=== PATIENT | male | born 1960 | race Caucasian/White ===

== ENCOUNTER 2016-12-27 05:33 | Emergency (ER) | payer SELFPAY ==
[2016-12-27 05:41] VITALS: BP 167/74; PULSE 61; RESP 18; TEMP 98.5
--- NOTE | 2016-12-27 05:57 | ED ---
General Adult HPI - General Chief complaint: Extremity Problem,Nontraumatic Stated complaint: Splinter in finger Time Seen by Provider: 12/27/16 05:34 Source: patient, RN notes reviewed Mode of arrival: ambulatory Limitations: no limitations - History of Present Illness Initial comments: 56-year-old male presents for evaluation of pain and swelling of his right third finger. Patient states on he got a splinter in the base of the third digit. He was sanding and hope table. Slit was made aware. He states that he immediately pulled the sliver out, however over the past 3 days he has had some swelling and erythema of this digit. This progressed until this morning, when he bent his finger he noticed a small amount of pus came from the site where the splinter had been. Patient is otherwise healthy. Patient is able to move the finger freely. No fever or chills - Related Data Previous Rx's Medication Instructions Recorded Cephalexin [Keflex] 500 mg PO Q8HR #30 cap 12/27/16 Sulfamethox-Tmp 800-160Mg [Bactrim 1 tab PO Q12HR #20 tab 12/27/16 DS 800-160 mg] Allergies Allergy/AdvReac Type Severity Reaction Status Date / Time No Known Allergies Allergy Verified 12/27/16 05:41 Review of Systems ROS Statement: Those systems with pertinent positive or pertinent negative responses have been documented in the HPI. ROS Other: All systems not noted in ROS Statement are negative. Past Medical History Past Medical History: Hypertension History of Any Multi-Drug Resistant Organisms: None Reported Additional Past Surgical History / Comment(s): stents placed. Past Psychological History: No Psychological Hx Reported Smoking Status: Current every day smoker Past Alcohol Use History: Daily Past Drug Use History: None Reported General Exam Limitations: no limitations General appearance: alert, in no apparent distress Head exam: Present: atraumatic, normocephalic Eye exam: Present: normal appearance, PERRL Neck exam: Present: normal inspection Respiratory exam: Present: normal lung sounds bilaterally. Absent: respiratory distress Cardiovascular Exam: Present: regular rate, normal rhythm Extremities exam: Present: other (Patient has erythema, warmth, and swelling of the proximal phalanx third digit right hand. There is a laceration on the palmar surface. This is draining a minimal amount of pus. Patient can fully move this digit both flexion and extension. No signs of erythema on the palmar surface.) Course Vital Signs 12/27/16 05:36 Temperature 98.5 F Pulse Rate 61 Respiratory 18 Rate Blood Pressure 167/74 O2 Sat by Pulse 99 Oximetry Medical Decision Making - Medical Decision Making 56-year-old male presenting with concern for retained splinter, third finger right hand. There is cellulitis and drainage over the site of injury. No signs of tenosynovitis, no tracking erythema into the pole. This is cleansed the emergency department, no obvious foreign body is visualized. The injury is on the flexor surface of the finger. It is freely draining pus. Patient is encouraged to continue warm soaks. He is given hand surgery follow-up for possible retained foreign body. He will be started on antibiotics. Return to emergency department with worsening symptoms. Disposition Clinical Impression: Splinter in skin, Cellulitis and abscess of hand Disposition: HOME SELF-CARE Condition: Good Instructions: Soft Tissue Foreign Body (ED), Cellulitis (ED) Additional Instructions: Return to the emergency department with worsening pain, swelling, or erythema moving up the hand. Prescriptions: Cephalexin [Keflex] 500 mg PO Q8HR #30 cap Sulfamethox-Tmp 800-160Mg [Bactrim DS 800-160 mg] 1 tab PO Q12HR #20 tab Referrals: None,Stated [Primary Care Provider] - 1-2 days Ad Saavedra DO [Doctor of Osteopathic Medicine] - 1-2 days Time of Disposition: 05:55
== END 2016-12-27 06:07 | disposition home or self-care (01) ==
LOC: EC 05:33
DX: S60.452A Superficial foreign body of right middle finger, initial encounter (principal); S61.212A Laceration without foreign body of right middle finger without damage to nail, initial encounter; L03.011 Cellulitis of right finger; F17.200 Nicotine dependence, unspecified, uncomplicated; W45.8XXA Other foreign body or object entering through skin, initial encounter
CPT/HCPCS: 99283

== ENCOUNTER → 2017-11-06 | Outpatient (CLI) | payer OTHER ==
[2017-11-06 12:30] LABS: ALT 53 U/L (21-72); AST 25 U/L (17-59); Cholesterol 160 mg/dL (<200); HDL Cholesterol 37 mg/dL (40-60); LDL Cholesterol,Calculated 74 mg/dL (0-99); Triglycerides 246 mg/dL (<150)
== END | disposition home or self-care (01) ==
LOC: LABWHC1 10:54
PROVIDERS: ATTEND Internal Medicine Cardiovascular Disease
DX: E78.2 Mixed hyperlipidemia (principal)
CPT/HCPCS: 36415; 80061; 84450; 84460

== ENCOUNTER 2024-07-03 16:18 | Observation (INO) | payer MEDICARE ==
[2024-07-03] MEDS ORDERED: MORPHINE SULFATE 4 MG/ML SYRINGE IV PRN (16:49)
--- NOTE | 2024-07-03 16:49 | ED ---
Abdominal Pain HPI - General Chief Complaint: Abdominal Pain Stated Complaint: abd pain Time Seen by Provider: 07/03/24 16:26 Source: patient, RN notes reviewed, old records reviewed Mode of arrival: ambulatory Limitations: no limitations - History of Present Illness Initial Comments: This is a 64-year-old male to the ER for evaluation abdominal pain this is recurrent abdominal pain from similar symptoms 2 weeks ago, patient had thorough and extensive evaluation including procedures CT scans repeat CT scan and ultrasound which she was unsure of findings. Patient has no recent travels or sick contacts no fevers positive nausea no vomiting no diarrhea abdominal pain that started today after eating worse after lunch started after breakfast. Symptoms are persistent MD Complaint: abdominal pain -: hour(s) Location: periumbilical, suprapubic Radiation: bilateral flank Migration to: periumbilical, suprapubic Severity: severe Severity scale (1-10): 10 Quality: cramping, stabbing Consistency: intermittent Improves With: nothing Worsens With: eating Associated Symptoms: nausea Treatments Prior to Arrival: other - Related Data Home Medications Medication Instructions Recorded Confirmed Atorvastatin [Lipitor] 40 mg PO DAILY 06/12/24 06/12/24 Fenofibrate Nanocrystallized 145 mg PO DAILY 06/12/24 06/12/24 [Fenofibrate] amLODIPine [Norvasc] 10 mg PO DAILY 06/12/24 06/12/24 cilostazoL [Pletal] 100 mg PO AC-BID 06/12/24 06/12/24 hydroCHLOROthiazide [Hydrodiuril] 25 mg PO DAILY 06/12/24 06/12/24 lisinopriL [Zestril] 40 mg PO DAILY 06/12/24 06/12/24 Previous Rx's Medication Instructions Recorded Apixaban [Eliquis] 5 mg PO BID #90 tab 06/14/24 Allergies Allergy/AdvReac Type Severity Reaction Status Date / Time No Known Allergies Allergy Verified 07/03/24 16:23 Review of Systems ROS Statement: Those systems with pertinent positive or pertinent negative responses have been documented in the HPI. ROS Other: All systems not noted in ROS Statement are negative. Past Medical History Past Medical History: Coronary Artery Disease (CAD), Hypertension, Sleep Apnea/CPAP/BIPAP Additional Past Medical History / Comment(s): PAD History of Any Multi-Drug Resistant Organisms: None Reported Past Surgical History: Heart Catheterization With Stent Additional Past Surgical History / Comment(s): bypass left leg Past Anesthesia/Blood Transfusion Reactions: No Reported Reaction Past Psychological History: No Psychological Hx Reported Smoking Status: Current every day smoker Past Alcohol Use History: Daily Past Drug Use History: None Reported General Exam Limitations: no limitations General appearance: alert, in no apparent distress Head exam: Present: atraumatic, normocephalic, normal inspection Eye exam: Present: normal appearance, PERRL, EOMI. Absent: scleral icterus, conjunctival injection, periorbital swelling ENT exam: Present: normal exam, mucous membranes moist Neck exam: Present: normal inspection. Absent: tenderness, meningismus, lymphadenopathy Respiratory exam: Present: normal lung sounds bilaterally. Absent: respiratory distress, wheezes, rales, rhonchi, stridor Cardiovascular Exam: Present: regular rate, normal rhythm, normal heart sounds. Absent: systolic murmur, diastolic murmur, rubs, gallop, clicks GI/Abdominal exam: Present: soft, normal bowel sounds. Absent: distended, tenderness, guarding, rebound, rigid Extremities exam: Present: normal inspection, full ROM, normal capillary refill. Absent: tenderness, pedal edema, joint swelling, calf tenderness Back exam: Present: normal inspection Neurological exam: Present: alert, oriented X3, CN II-XII intact Psychiatric exam: Present: normal affect, normal mood Skin exam: Present: warm, dry, intact, normal color. Absent: rash Course Vital Signs 07/03/24 16:33 Temperature 98.4 F Pulse Rate 86 Respiratory 16 Rate Blood Pressure 138/78 O2 Sat by Pulse 97 Oximetry - Reevaluation(s) Reevaluation #1: 07/03/24 17:10 Medical records reviewed Reevaluation #4: Was pt. sent in by a medical professional or institution (, PA, GAS CUTTING MACHINE OPERATOR, urgent care, hospital, or care home...) When possible be specific @ -no Did you speak to anyone other than the patient for history (EMS, parent, family, police, friend...)? What history was obtained from this source @ -no Did you review nursing and triage notes (agree or disagree)? Why? @ -agree Are old charts reviewed (outside hosp., previous admission, EMS record, old EKG, old radiological studies, urgent care reports/EKG's, care home records)? Report findings @ -yes Differential Diagnosis (chest pain, altered mental status, abdominal pain women, abdominal pain men, vaginal bleeding, weakness, fever, dyspnea, syncope, headache, dizziness, GI bleed, back pain, seizure, CVA, palpatations, mental health, musculoskeletal)? @ -prior EKG interpreted by me (3pts min.). @ -yes X-rays interpreted by me (1pt min.). @ -yes negative for acute disease CT interpreted by me (1pt min.). @ -no U/S interpreted by me (1pt. min.). @ -no What testing was considered but not performed or refused? (CT, X-rays, U/S, labs)? Why? @ -none What meds were considered but not given or refused? Why? @ -none Did you discuss the management of the patient with other professionals (professionals i.e. , PA, GAS CUTTING MACHINE OPERATOR, lab, RT, psych nurse, child protective services social worker, intellectual property lawyer, teacher, hospital chief executive officer, embedded case manager)? Give summary @ -no Was smoking cessation discussed for >3mins.? @ -no Was critical care preformed (if so, how long)? @ -no Were there social determinants of health that impacted care today? How? (Homelessness, low income, unemployed, alcoholism, drug addiction, transportation, low edu. Level, literacy, decrease access to med. care, [facility], rehab)? @ -none Was there de-escalation of care discussed even if they declined (Discuss DNR or withdrawal of care, Hospice)? DNR status @ -no What co-morbidities impacted this encounter? (DM, HTN, Smoking, COPD, CAD, Cancer, CVA, ARF, Chemo, Hep., AIDS, mental health diagnosis, sleep apnea, morbid obesity)? @ -none Was patient admitted / discharged? Hospital course, mention meds given and route, prescriptions, significant lab abnormalities, going to OR and other pertinent info. @ - Undiagnosed new problem with uncertain prognosis? @ -no Drug Therapy requiring intensive monitoring for toxicity (Heparin, Nitro, Insulin, Cardizem)? @ -no Were any procedures done? @ -no Diagnosis/symptom? @ - Acute, or Chronic, or Acute on Chronic? @ -Acute Uncomplicated (without systemic symptoms) or Complicated (systemic symptoms)? @ -Complicated Side effects of treatment? @ -no Exacerbation, Progression, or Severe Exacerbation? @ -exacerbation Poses a threat to life or bodily function? How? (Chest pain, USA, OR, pneumonia, PE, COPD, DKA, ARF, appy, cholecystitis, CVA, Diverticulitis, Homicidal, Suicidal, threat to staff... and all critical care pts) @ -yes Reevaluation #5: Differential Abdominal Pain Men: Appendicitis, cholecystitis, diverticulosis, ischemic bowel, pancreatitis, hepatitis, UTI, gastroenteritis, AAA, incarcerated hernia, bowel obstruction, constipation, inflammatory bowel, hepatitis, peptic ulcer disease, splenic infarction, perforated viscus, testicular torsion, this is not meant to be an all-inclusive list Medical Decision Making - Lab Data Result diagrams: 07/03/24 16:57 07/03/24 16:57 Lab Results 07/03/24 07/03/24 07/03/24 Range/Units 16:57 16:57 16:57 WBC 12.41 H (4.50-10.00) 10*3/uL RBC 5.29 (4.40-5.60) 10*6/uL Hgb 16.3 (13.0-17.0) g/dL Hct 46.3 (39.6-50.0) % MCV 87.5 (80.0-97.0) fL MCH 30.8 (27.0-32.0) pg MCHC 35.2 (32.0-37.0) g/dL Plt Count 336 (140-440) 10*3/uL MPV 10.3 (9.5-12.2) fL Immature Gran % (Auto) 0.3 % Neutrophils % 73.0 % Lymphocytes % 17.7 % Monocytes % 6.6 % Eosinophils % 1.4 % Basophils % 1.0 % Immature Gran # 0.04 (0.00-0.04) 10*3/uL Neutrophils # 9.05 H (1.80-7.70) 10*3/uL Lymphocytes # 2.20 (0.90-5.00) 10*3/uL Monocytes # 0.82 (0.20-1.00) 10*3/uL Eosinophils # 0.17 (0.04-0.35) 10*3/uL Basophils # 0.13 H (0.00-0.10) 10*3/uL PT 11.7 (10.0-12.5) sec INR 1.1 (<1.2) APTT 24.7 (22.0-30.0) sec Sodium 138 (137-145) mmol/L Potassium 3.5 (3.5-5.1) mmol/L Chloride 105 (98-107) mmol/L Carbon Dioxide 21 L (22-30) mmol/L Anion Gap 12 mmol/L BUN 19 (9-20) mg/dL Creatinine 0.85 (0.66-1.25) mg/dL Est GFR (CKD-EPI)AfAm >90 (>60 ml/min/1.73 sqM) Est GFR (CKD-EPI)NonAf >90 (>60 ml/min/1.73 sqM) Glucose 167 H (74-99) mg/dL Plasma Lactic Acid Liam (0.7-2.0) mmol/L Calcium 10.4 H (8.4-10.2) mg/dL Phosphorus 3.2 (2.5-4.5) mg/dL Magnesium 1.6 (1.6-2.3) mg/dL Total Bilirubin 0.7 (0.2-1.3) mg/dL AST 17 (17-59) U/L ALT 17 (4-49) U/L Alkaline Phosphatase 50 (38-126) U/L Troponin I (0.000-0.034) ng/mL Total Protein 6.9 (6.3-8.2) g/dL Albumin 4.5 (3.5-5.0) g/dL Amylase 41 (30-110) U/L Lipase 36 (23-300) U/L Serum Alcohol <10 mg/dL 07/03/24 07/03/24 Range/Units 16:57 16:57 WBC (4.50-10.00) 10*3/uL RBC (4.40-5.60) 10*6/uL Hgb (13.0-17.0) g/dL Hct (39.6-50.0) % MCV (80.0-97.0) fL MCH (27.0-32.0) pg MCHC (32.0-37.0) g/dL Plt Count (140-440) 10*3/uL MPV (9.5-12.2) fL Immature Gran % (Auto) % Neutrophils % % Lymphocytes % % Monocytes % % Eosinophils % % Basophils % % Immature Gran # (0.00-0.04) 10*3/uL Neutrophils # (1.80-7.70) 10*3/uL Lymphocytes # (0.90-5.00) 10*3/uL Monocytes # (0.20-1.00) 10*3/uL Eosinophils # (0.04-0.35) 10*3/uL Basophils # (0.00-0.10) 10*3/uL PT (10.0-12.5) sec INR (<1.2) APTT (22.0-30.0) sec Sodium (137-145) mmol/L Potassium (3.5-5.1) mmol/L Chloride (98-107) mmol/L Carbon Dioxide (22-30) mmol/L Anion Gap mmol/L BUN (9-20) mg/dL Creatinine (0.66-1.25) mg/dL Est GFR (CKD-EPI)AfAm (>60 ml/min/1.73 sqM) Est GFR (CKD-EPI)NonAf (>60 ml/min/1.73 sqM) Glucose (74-99) mg/dL Plasma Lactic Acid Liam 1.7 (0.7-2.0) mmol/L Calcium (8.4-10.2) mg/dL Phosphorus (2.5-4.5) mg/dL Magnesium (1.6-2.3) mg/dL Total Bilirubin (0.2-1.3) mg/dL AST (17-59) U/L ALT (4-49) U/L Alkaline Phosphatase (38-126) U/L Troponin I <0.012 (0.000-0.034) ng/mL Total Protein (6.3-8.2) g/dL Albumin (3.5-5.0) g/dL Amylase (30-110) U/L Lipase (23-300) U/L Serum Alcohol mg/dL Disposition Clinical Impression: Abdominal pain, Nausea and vomiting, Leukocytosis, Abdominal colic Disposition: ADMITTED IP TO THIS HOSP Condition: Fair Is patient prescribed a controlled substance at d/c from ED?: No Referrals: Scott Hernandez MD [Primary Care Provider] - 1-2 days Time of Disposition: :00
[2024-07-03] MEDS: SODIUM CHLORIDE 0.9% 1,000 ML IV ONE (17:02)
[2024-07-03] MEDS: ONDANSETRON 4 MG/2 ML VIAL IVP STA (17:02)
[2024-07-03] MEDS: PANTOPRAZOLE 40 MG/10 ML VIAL IVP STA (17:02)
[2024-07-03] MEDS: MORPHINE SULFATE 4 MG/ML SYRINGE IVP STA (17:02)
[2024-07-03 17:04] LABS: Basophils # (A) 0.13 10*3/uL (0.00-0.10); Eosinophils # (A) 0.17 10*3/uL (0.04-0.35); Eosinophils % (A) 1.4 %; HCT 46.3 % (39.6-50.0); HGB 16.3 g/dL (13.0-17.0); Lymphocytes % (A) 17.7 %; MCH 30.8 pg (27.0-32.0); MCHC 35.2 g/dL (32.0-37.0); MCV 87.5 fL (80.0-97.0); Mean Platelet Volume 10.3 fL (9.5-12.2); Monocytes # (A) 0.82 10*3/uL (0.20-1.00); Monocytes % (A) 6.6 %; Neutrophils # (A) 9.05 10*3/uL (1.80-7.70); Platelet Count 336 10*3/uL (140-440); RBC 5.29 10*6/uL (4.40-5.60); RDW 12.9 % (11.5-14.5); WBC 12.41 10*3/uL (4.50-10.00)
[2024-07-03 17:15] LABS: INR 1.1 (<1.2); Partial Thromboplastin Time 24.7 sec (22.0-30.0); Prothrombin Time 11.7 sec (10.0-12.5)
[2024-07-03 17:31] LABS: ALT 17 U/L (4-49); AST 17 U/L (17-59); African American GFR (CKD) >90 (>60 ml/min/1.73 sqM); Albumin 4.5 g/dL (3.5-5.0); Alcohol <10 mg/dL; Alkaline Phosphatase 50 U/L (38-126); Amylase 41 U/L (30-110); Anion Gap 12 mmol/L; Blood Urea Nitrogen 19 mg/dL (9-20); Calcium 10.4 mg/dL (8.4-10.2); Carbon Dioxide 21 mmol/L (22-30); Chloride 105 mmol/L (98-107); Glucose 167 mg/dL (74-99); Lipase 36 U/L (23-300); Magnesium 1.6 mg/dL (1.6-2.3); Non-African American GFR(CKD) >90 (>60 ml/min/1.73 sqM); Phosphorus 3.2 mg/dL (2.5-4.5); Potassium 3.5 mmol/L (3.5-5.1); Sodium 138 mmol/L (137-145); Total Bilirubin 0.7 mg/dL (0.2-1.3); Total Protein 6.9 g/dL (6.3-8.2)
--- NOTE | 2024-07-03 18:57 | CT ---
EXAMINATION TYPE: CT angio abdomen pelvis DATE OF EXAM: 07/03/2024 6:27 PM COMPARISON: Prior CT angiogram study 06/14/2024. CLINICAL INDICATION: Male, 64 years old with history of pain,AAA; PHH, SHARP PAIN IN LOWER ABDOMEN, N AUSEA TECHNIQUE: Multiple thin slice sub-millimeter images were obtained after administration of contrast. 3-D reconstructed images and maximum intensity projection images were obtained. CT angio abdomen pel vis CT Contrast: Contrast used:100 ml mL of Isovue 370 with IV Contrast, Oral contrast used: without Oral Contrast None CT DLP: 1488.9 mGycm, Automated exposure control for dose reduction was used. FINDINGS: Partially visualized lower lungs demonstrates no acute pathology. Liver unremarkable. Gallbladder unr emarkable. Pancreas unremarkable. No pancreatic duct dilatation. No abnormal biliary duct dilatation. Spleen is normal in size and morphology. No suspicious adrenal gland nodule. Kidneys enhance symmetr ically bilaterally. No hydronephrosis or ureter. Colonic diverticulosis without acute diverticulitis. No evidence of small bowel obstruction. Stomach unremarkable. Appendix unremarkable. No significant free fluid or free air in the abdomen/pelvis. Inf rarenal partially thrombosed aneurysm measuring up to 4.8 x 4.7 cm status post previous aortobiiliac endograft stent placement. Additionally, there is complete occlusion of the proximal SMA (67/248) wit h reconstitution more distally, also, not significantly changed from most recent prior studies. Dista l SMA branches not well evaluated. Urinary bladder unremarkable. The pathologic intraperitoneal or mesenteric lymphadenopathy. No abnorm al acute small or large bowel wall thickening or adjacent mesenteric acute inflammatory changes. Smal l fat-containing right inguinal hernia. Central prostate gland calcifications. IMPRESSION: 1. No convincing evidence of an acute abnormality in the abdomen/pelvis. 2. 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 Findings are suggestive o f chronic mesenteric ischemia in the appropriate clinical setting. No definite acute small or large b owel wall thickening or adjacent mesenteric inflammation to suggest acute etiology at this time. Terrance mmend correlation with lactate levels. 3. Grossly stable partially thrombosed infrarenal abdominal aortic aneurysm. 4. Additional nonacute findings as above. [facility], Workstation: [id number], 07/03/2024 6:54 PM
[2024-07-03] MEDS ORDERED: ONDANSETRON 4 MG/2 ML VIAL IVP PRN (19:36)
[2024-07-03] MEDS ORDERED: NALOXONE 0.4 MG/ML 1 ML VIAL IV PRN (19:36)
[2024-07-03] MEDS ORDERED: HYDROmorphone 1 MG/ML 1 ML SYRINGE IVP PRN (19:36)
[2024-07-03] MEDS: SODIUM CHLORIDE 0.9% 1,000 ML IV SCH (20:16)
[2024-07-03] MEDS: AMPICILLIN-SULBACTAM 3 GM in SODIUM CHLORIDE 0.9% 100 ML IVPB STA (20:16)
[2024-07-04 08:12] VITALS: RESP 18
[2024-07-04 08:39] LABS: ALT 13 U/L (10-49); AST 12 U/L (14-35); Albumin 3.9 g/dL (3.8-4.9); Albumin/Globulin Ratio 1.86 Ratio (1.60-3.17); Alkaline Phosphatase 58 U/L (41-126); BUN/Creat Ratio 16.75 Ratio (12.00-20.00); Blood Urea Nitrogen 13.4 mg/dL (9.0-27.0); Calcium 9.2 mg/dL (8.7-10.3); Carbon Dioxide 19.4 mmol/L (21.6-31.8); Chloride 106 mmol/L (96-109); Globulin 2.1 g/dL (1.6-3.3); Glucose 91 mg/dL (70-110); Lipase 17 U/L (14-60); Magnesium 1.5 mg/dL (1.5-2.4); Phosphorus 3.6 mg/dL (2.4-5.1); Potassium 4.2 mmol/L (3.5-5.5); Sodium 138 mmol/L (135-145); Total Bilirubin 0.4 mg/dL (0.3-1.2)
[2024-07-04 09:35] LABS: Basophils # (A) 0.13 X 10*3/uL (0.00-0.10); Basophils % (A) 0.9 %; Eosinophils # (A) 0.26 X 10*3/uL (0.04-0.35); Eosinophils % (A) 1.8 %; HCT 44.7 % (39.6-50.0); HGB 14.7 g/dL (13.0-17.0); Lymphocytes # (A) 3.05 X 10*3/uL (0.90-5.00); MCH 29.8 pg (27.0-32.0); MCHC 32.9 g/dL (32.0-37.0); MCV 90.7 FL (80.0-97.0); Mean Platelet Volume 11.3 FL (9.5-12.2); Monocytes # (A) 0.96 X 10*3/uL (0.20-1.00); Monocytes % (A) 6.6 %; NRBC Per 100 WBC 0 X 10*3/uL (0.00-0.01); Neutrophils % (A) 69.4 %; Platelet Count 303 X 10*3/uL (140-440); RBC 4.93 X 10*6/uL (4.40-5.60); RDW 13.1 % (11.5-14.5); WBC 14.55 X 10*3/uL (4.50-10.00)
[2024-07-04] MEDS: PANTOPRAZOLE 40 MG/10 ML VIAL IV SCH (10:03)
--- NOTE | 2024-07-04 10:58 | P.GSCN ---
History of Present Illness Consult date: 07/04/24 Reason for Consult: AAA Requesting physician: Reinaldo Acosta History of present illness: This is a pleasant 64-year-old male with a history of known abdominal aortic aneurysm,, peripheral arterial disease with previous right femoral cysts stenting and left femoropopliteal bypass, daily smoker, hypertension, obs tructive sleep apnea and history of daily alcoholism presented to the emergency department yesterday with complaints of abdominal pain with nausea but no vomiting. Patient states he abdominal pain was a sudden onset after he ate macaroni and cheese he states that he started feeling a full feeling and then abdominal pain 1 across his mid to lower abdomen and continued until he came here to the hospital and Pain medication. Since that time he has had no nausea or vomiting and no abdominal pain. General surgery was consulted for abdominal pain and vascular surgery was consulted for abdominal aortic aneurysm. Patient was seen in a prior hospitalization from vascular surgery, he has a follow-up appointment this coming Thursday with Dr. Garza. Again denies any abdominal pain no pain radiating into his back. He denies any shortness of breath or chest pain. Patient states he is smoking 2 to 3 cigarettes a day, sometimes goes a day without smoking. He states that he has stopped drinking alcohol about 2 months ago. He has been afebrile. Mild leukocytosis. No acute findings on CT angiogram abdomen and pelvis. He is currently on Eliquis 5 mg twice daily, his PCP Dr. Stewart started him on Pletal for PAD. Review of Systems A 14 point review systems was completed all pertinent positives and negatives as stated in the HPI. Past Medical History Past Medical History: Coronary Artery Disease (CAD), Hypertension, Sleep Apnea/CPAP/BIPAP Additional Past Medical History / Comment(s): PAD History of Any Multi-Drug Resistant Organisms: None Reported Past Surgical History: Heart Catheterization With Stent Additional Past Surgical History / Comment(s): bypass left leg Past Anesthesia/Blood Transfusion Reactions: No Reported Reaction Past Psychological History: No Psychological Hx Reported Smoking Status: Current every day smoker Past Alcohol Use History: Daily Past Drug Use History: None Reported Medications and Allergies Home Medications Medication Instructions Recorded Confirmed Type Atorvastatin [Lipitor] 40 mg PO DAILY 06/12/24 07/03/24 History Fenofibrate Nanocrystallized 145 mg PO DAILY 06/12/24 07/03/24 History [Fenofibrate] amLODIPine [Norvasc] 10 mg PO DAILY 06/12/24 07/03/24 History cilostazoL [Pletal] 100 mg PO AC-BID 06/12/24 07/03/24 History hydroCHLOROthiazide [Hydrodiuril] 25 mg PO DAILY 06/12/24 07/03/24 History lisinopriL [Zestril] 40 mg PO DAILY 06/12/24 07/03/24 History Apixaban [Eliquis] 5 mg PO BID #90 tab 06/14/24 07/03/24 Rx Allergies Allergy/AdvReac Type Severity Reaction Status Date / Time No Known Allergies Allergy Verified 07/03/24 20:02 Surgical - Exam Vital Signs Temp Pulse Resp BP Pulse Ox 98.4 F 86 16 138/78 97 07/03/24 16:33 07/03/24 16:33 07/03/24 16:33 07/03/24 16:33 07/03/24 16:33 General appearance: The patient is alert, oriented, appears in no acute distress. HET: Head is normocephalic and atraumatic. Pupils are equal and reactive. Neck: Supple. Heart: Regular. Lungs: Equal expansion, normal respiratory effort. Abdomen: Soft, nontender, nondistended. Extremities: Normal skin color and turgor. Palpable bilateral PT pulses, palpable left DP pulse. Neurological: No focal deficits. Strength and sensation are grossly intact. Results - Labs 07/04/24 04:27 07/04/24 04:27 Abnormal Lab Results - Last 24 Hours (Table) 07/03/24 07/03/24 07/03/24 Range/Units 16:57 16:57 19:47 WBC 12.41 H (4.50-10.00) 10*3/uL Neutrophils # 9.05 H (1.80-7.70) 10*3/uL Basophils # 0.13 H (0.00-0.10) 10*3/uL Carbon Dioxide 21 L (22-30) mmol/L Anion Gap (4.00-12.00) mmol/L Glucose 167 H (74-99) mg/dL Calcium 10.4 H (8.4-10.2) mg/dL AST (14-35) U/L C-Reactive Protein 1.8 H (<1.0) mg/dL Total Protein (6.2-8.2) g/dL 07/04/24 Range/Units 04:27 WBC (4.50-10.00) 10*3/uL Neutrophils # (1.80-7.70) 10*3/uL Basophils # (0.00-0.10) 10*3/uL Carbon Dioxide 19.4 L (22-30) mmol/L Anion Gap 12.60 H (4.00-12.00) mmol/L Glucose (74-99) mg/dL Calcium (8.4-10.2) mg/dL AST 12 L (14-35) U/L C-Reactive Protein (<1.0) mg/dL Total Protein 6.0 L (6.2-8.2) g/dL Diabetes panel 07/03/24 07/04/24 Range/Units 16:57 04:27 Sodium 138 138 (137-145) mmol/L Potassium 3.5 4.2 (3.5-5.1) mmol/L Chloride 105 106 (98-107) mmol/L Carbon Dioxide 21 L 19.4 L (22-30) mmol/L BUN 19 13.4 (9-20) mg/dL Creatinine 0.85 0.8 (0.66-1.25) mg/dL Glucose 167 H 91 (74-99) mg/dL Calcium 10.4 H 9.2 (8.4-10.2) mg/dL AST 17 12 L (17-59) U/L ALT 17 13 (4-49) U/L Alkaline Phosphatase 50 58 (38-126) U/L Total Protein 6.9 6.0 L (6.3-8.2) g/dL Albumin 4.5 3.9 (3.5-5.0) g/dL Calcium panel 07/03/24 07/04/24 Range/Units 16:57 04:27 Calcium 10.4 H 9.2 (8.4-10.2) mg/dL Phosphorus 3.2 3.6 (2.5-4.5) mg/dL Albumin 4.5 3.9 (3.5-5.0) g/dL Pituitary panel 07/03/24 07/04/24 Range/Units 16:57 04:27 Sodium 138 138 (137-145) mmol/L Potassium 3.5 4.2 (3.5-5.1) mmol/L Chloride 105 106 (98-107) mmol/L Carbon Dioxide 21 L 19.4 L (22-30) mmol/L BUN 19 13.4 (9-20) mg/dL Creatinine 0.85 0.8 (0.66-1.25) mg/dL Glucose 167 H 91 (74-99) mg/dL Calcium 10.4 H 9.2 (8.4-10.2) mg/dL Adrenal panel 07/03/24 07/04/24 Range/Units 16:57 04:27 Sodium 138 138 (137-145) mmol/L Potassium 3.5 4.2 (3.5-5.1) mmol/L Chloride 105 106 (98-107) mmol/L Carbon Dioxide 21 L 19.4 L (22-30) mmol/L BUN 19 13.4 (9-20) mg/dL Creatinine 0.85 0.8 (0.66-1.25) mg/dL Glucose 167 H 91 (74-99) mg/dL Calcium 10.4 H 9.2 (8.4-10.2) mg/dL Total Bilirubin 0.7 0.4 (0.2-1.3) mg/dL AST 17 12 L (17-59) U/L ALT 17 13 (4-49) U/L Alkaline Phosphatase 50 58 (38-126) U/L Total Protein 6.9 6.0 L (6.3-8.2) g/dL Albumin 4.5 3.9 (3.5-5.0) g/dL - Imaging Comments: CAT scan angiogram abdomen and pelvis reports no convincing evidence of an acute abnormality in the abdomen/pelvis. Severe mixed calcified arthrosclerotic disease and short segment chronic complete occlusion of the SMA with reconstitution, similar to most recent prior study of 06/14/2024. Findings are suggestive of chronic mesenteric ischemia in the appropriate clinical setting. No definitive acute small or large bowel wall thickening or adjacent mesenteric inflammation to suggest acute etiology at this time. Recommend correlation with lactic levels. Grossly stable partially thrombosed infrarenal abdominal aortic aneurysm. Additional nonacute findings as above. Assessment and Plan Assessment: 1. Asymptomatic abdominal aortic aneurysm 2. Abdominal pain now resolved 3. Chronic SMA occlusion with reconstitution 4. Peripheral arterial disease with history of revascularization 5. Hypertension 6. Daily smoker 7. History of daily alcohol use Plan: 1. There is no indication for any vascular surgical intervention at this time 2. Patient to follow-up with Dr. Garza on Thursday as scheduled 3. Patient may eat from a vascular surgical standpoint 4. Continue home medications, may resume Eliquis 5. Recommend smoking cessation. Discussed with patient importance of smoking cessation. Patient offered nicotine patch. Quit smoking hotline 1 800 quit-now given to patient. Thank you for this consultation. Patient is cleared from vascular surgery for discharge. The impression and plan of care has been dictated as directed. Dr. Sparks I performed a history and examination of this patient, discussed the same with the dictator. I agree with the dictator's note ,documented as a scribe. Any additional findings or plans will be noted.
[2024-07-04 15:13] VITALS: BP 152/75; PULSE 66; TEMP 98.1
--- NOTE | 2024-07-04 15:24 | P.GSCN ---
History of Present Illness Consult date: 07/04/24 History of present illness: CHIEF COMPLAINT: Abdominal pain HISTORY OF PRESENT ILLNESS: This is a 64-year-old male who presented with pain across upper abdomen. Patient reports the pain had started about 3 hours after eating mac & cheese. Patient reports having nausea. Denies any vomiting. He reports having bowel movements that are regular. He denies any blood in his stools. Patient reports having recent symptoms about 2 weeks ago that brought him into the ER and reports the workup was negative. He is on Eliquis and Pletal. He has known history of A-fib and peripheral vascular disease. He follows with vascular surgery for his abdominal aortic aneurysm. There was a CTA scan abdomen pelvis completed that reported no convincing evidence for acute abnormality in the abdomen or pelvis. Severe mixed calcified atherosclerotic disease and short segment chronic complete occlusion of the SMA with reconstitution. Findings are suggestive of chronic mesenteric ischemia in the appropriate clinical setting no evidence of acute small or large bowel wall thi ckening or adjacent mesenteric inflammation to suggest acute etiology. Surgical service consulted for abdominal pain. Patient reports his abdominal pain has completely resolved. He and he is feeling better. PAST MEDICAL HISTORY: See below PAST SURGICAL HISTORY: See below MEDICATIONS: See below ALLERGIES: See below SOCIAL HISTORY: No illicit drug use. REVIEW OF SYSTEMS: CONSTITUTIONAL: Denies fever or chills. HEENT: Denies blurred vision, vision changes, or eye pain. Denies hemoptysis CARDIOVASCULAR: Denies chest pain or pressure. RESPIRATORY: No shortness of breath. GASTROINTESTINAL: See HPI for pertinent findings HEMATOLOGIC: Denies bleeding disorders. GENITOURINARY: Denies any blood in urine or increased urinary frequency. SKIN: Denies pruitis. Denies rash. PHYSICAL EXAM: VITAL SIGNS: Reviewed GENERAL: Well-developed in no acute distress. HEENT: No sclera icterus. Extraocular movements grossly intact. Moist buccal mucosa. Head is atraumatic, normocephalic. No nasal drainage. ABDOMEN: Soft. Nondistended. Nontender NEUROLOGIC: Alert and oriented. Cranial nerves II through XII grossly intact. LABORATORY DATA: WBC 14.5 Hgb 14.7 platelets 303 Lactic acid 1.7 LFTs normal IMAGING: CTA of abdomen and pelvis no convincing evidence of acute abnormality. Severe mixed calcified atherosclerotic disease and short segment chronic complete occlusion of the SMA with reconstitution similar to most recent prior study in May 2024. Findings are suggestive of chronic mesenteric ischemia in the appropriate clinical setting. No definite acute small or large bowel wall thickening or adjacent mesenteric inflammation to suggest acute etiology. Grossly stable partially thrombosed infrarenal abdominal aortic aneurysm. ASSESSMENT: 1. Abdominal pain across upper abdomen now resolved. Possible chronic mesenteric ischemia noted on CT scan PLAN: - Agree with low-fat diet - No surgical intervention planned Physician Supply Planner note has been reviewed by physician. Signing provider agrees with the documented findings, assessment, and plan of care. Attestation 64-year-old male presented to the emergency department with complaint of abdominal pain. On workup, there does not appear to be any acute findings, however there is severe mixed calcified atherosclerotic disease concerning for creating chronic mesenteric ischemia. Vascular surgery consult has been placed. Currently, patient's abdominal pain has improved. No plan for acute surgical intervention. Continue follow-up with vascular surgery. Danay Crain DO Past Medical History Past Medical History: Coronary Artery Disease (CAD), Hypertension, Sleep Apnea/CPAP/BIPAP Additional Past Medical History / Comment(s): PAD History of Any Multi-Drug Resistant Organisms: None Reported Past Surgical History: Heart Catheterization With Stent Additional Past Surgical History / Comment(s): bypass left leg Past Anesthesia/Blood Transfusion Reactions: No Reported Reaction Past Psychological History: No Psychological Hx Reported Smoking Status: Current every day smoker Past Alcohol Use History: Daily Past Drug Use History: None Reported Medications and Allergies Home Medications Medication Instructions Recorded Confirmed Type Atorvastatin [Lipitor] 40 mg PO DAILY 06/12/24 07/03/24 History Fenofibrate Nanocrystallized 145 mg PO DAILY 06/12/24 07/03/24 History [Fenofibrate] amLODIPine [Norvasc] 10 mg PO DAILY 06/12/24 07/03/24 History cilostazoL [Pletal] 100 mg PO AC-BID 06/12/24 07/03/24 History hydroCHLOROthiazide [Hydrodiuril] 25 mg PO DAILY 06/12/24 07/03/24 History lisinopriL [Zestril] 40 mg PO DAILY 06/12/24 07/03/24 History Apixaban [Eliquis] 5 mg PO BID #90 tab 06/14/24 07/03/24 Rx Allergies Allergy/AdvReac Type Severity Reaction Status Date / Time No Known Allergies Allergy Verified 07/03/24 20:02 Surgical - Exam Osteopathic Statement: *. No significant issues noted on an osteopathic structural exam other than those noted in the History and Physical/Consult. Vital Signs Temp Pulse Resp BP Pulse Ox 98.4 F 86 16 138/78 97 07/03/24 16:33 07/03/24 16:33 07/03/24 16:33 07/03/24 16:33 07/03/24 16:33 Results - Labs 07/04/24 04:27 07/04/24 04:27 Abnormal Lab Results - Last 24 Hours (Table) 07/03/24 07/03/24 07/03/24 Range/Units 16:57 16:57 19:47 WBC 12.41 H (4.50-10.00) 10*3/uL Immature Gran # (0.00-0.04) X 10*3/uL Neutrophils # 9.05 H (1.80-7.70) 10*3/uL Basophils # 0.13 H (0.00-0.10) 10*3/uL Carbon Dioxide 21 L (22-30) mmol/L Anion Gap (4.00-12.00) mmol/L Glucose 167 H (74-99) mg/dL Calcium 10.4 H (8.4-10.2) mg/dL AST (14-35) U/L C-Reactive Protein 1.8 H (<1.0) mg/dL Total Protein (6.2-8.2) g/dL 07/04/24 07/04/24 Range/Units 04:27 04:27 WBC 14.55 H (4.50-10.00) 10*3/uL Immature Gran # 0.05 H (0.00-0.04) X 10*3/uL Neutrophils # 10.10 H (1.80-7.70) 10*3/uL Basophils # 0.13 H (0.00-0.10) 10*3/uL Carbon Dioxide 19.4 L (22-30) mmol/L Anion Gap 12.60 H (4.00-12.00) mmol/L Glucose (74-99) mg/dL Calcium (8.4-10.2) mg/dL AST 12 L (14-35) U/L C-Reactive Protein (<1.0) mg/dL Total Protein 6.0 L (6.2-8.2) g/dL Diabetes panel 07/03/24 07/04/24 Range/Units 16:57 04:27 Sodium 138 138 (137-145) mmol/L Potassium 3.5 4.2 (3.5-5.1) mmol/L Chloride 105 106 (98-107) mmol/L Carbon Dioxide 21 L 19.4 L (22-30) mmol/L BUN 19 13.4 (9-20) mg/dL Creatinine 0.85 0.8 (0.66-1.25) mg/dL Glucose 167 H 91 (74-99) mg/dL Calcium 10.4 H 9.2 (8.4-10.2) mg/dL AST 17 12 L (17-59) U/L ALT 17 13 (4-49) U/L Alkaline Phosphatase 50 58 (38-126) U/L Total Protein 6.9 6.0 L (6.3-8.2) g/dL Albumin 4.5 3.9 (3.5-5.0) g/dL Calcium panel 07/03/24 07/04/24 Range/Units 16:57 04:27 Calcium 10.4 H 9.2 (8.4-10.2) mg/dL Phosphorus 3.2 3.6 (2.5-4.5) mg/dL Albumin 4.5 3.9 (3.5-5.0) g/dL Pituitary panel 07/03/24 07/04/24 Range/Units 16:57 04:27 Sodium 138 138 (137-145) mmol/L Potassium 3.5 4.2 (3.5-5.1) mmol/L Chloride 105 106 (98-107) mmol/L Carbon Dioxide 21 L 19.4 L (22-30) mmol/L BUN 19 13.4 (9-20) mg/dL Creatinine 0.85 0.8 (0.66-1.25) mg/dL Glucose 167 H 91 (74-99) mg/dL Calcium 10.4 H 9.2 (8.4-10.2) mg/dL Adrenal panel 07/03/24 07/04/24 Range/Units 16:57 04:27 Sodium 138 138 (137-145) mmol/L Potassium 3.5 4.2 (3.5-5.1) mmol/L Chloride 105 106 (98-107) mmol/L Carbon Dioxide 21 L 19.4 L (22-30) mmol/L BUN 19 13.4 (9-20) mg/dL Creatinine 0.85 0.8 (0.66-1.25) mg/dL Glucose 167 H 91 (74-99) mg/dL Calcium 10.4 H 9.2 (8.4-10.2) mg/dL Total Bilirubin 0.7 0.4 (0.2-1.3) mg/dL AST 17 12 L (17-59) U/L ALT 17 13 (4-49) U/L Alkaline Phosphatase 50 58 (38-126) U/L Total Protein 6.9 6.0 L (6.3-8.2) g/dL Albumin 4.5 3.9 (3.5-5.0) g/dL
--- NOTE | 2024-07-05 01:34 | HP ---
HISTORY AND PHYSICAL This is a combined history and physical and discharge summary. CHIEF COMPLAINT: Abdominal pain. HISTORY OF PRESENT ILLNESS: This is a 64-year-old gentleman with a past medical history of multiple medical problems including CAD, history of peripheral vascular disease, history of CAD stent, was complaining of abdominal pain, which is rather [id number], which is diffuse in character and CT of the abdomen showed some calcifications with SMA occlusion with reconstitution. Vascular Surgery saw the patient and cleared the patient for discharge with further plans for outpatient followup. The patient had asymptomatic abdominal aortic aneurysm. There is no history of fever, rigors, or chills at this time. PAST MEDICAL HISTORY: Reviewed include CAD, hypertension, history of peripheral vascular disease, rest of the medications, rest of the chart is also reviewed. HOME MEDICATIONS: Reviewed, include Zestril. Dose and rest of medications reviewed. ALLERGIES: None known. FAMILY HISTORY: No history of heart disease or strokes in the family. SOCIAL HISTORY: History of smoking, alcohol daily. REVIEW OF SYSTEMS: Fourteen-point review of systems negative except as mentioned earlier. PHYSICAL EXAMINATION: VITAL SIGNS: Pulse is 60, blood pressure 155/76, respirations 18. HEENT: Conjunctivae normal. NECK: No jugular venous distention. CARDIOVASCULAR: S1, S2 muffled. RESPIRATIONS: Breath sounds diminished at the bases. ABDOMEN: Soft, nontender. No mass palpable. LEGS: No edema. No swelling. NERVOUS SYSTEM: No focal deficit. LABORATORY DATA: Reviewed. Sodium is 14.5. ASSESSMENT: 1. Abdominal pain, possibly [id number] secondary to mesenteric ischemia. 2. History of chronic spinal muscular atrophy occlusion and reconstruction. 3. Continued ongoing nicotine dependence, history of EtOH. 4. Hypertension. 5. Elevated WBC. 6. History of coronary artery disease stent. 7. History of sleep apnea. RECOMMENDATIONS AND DISCUSSIONS: This 64-year-old gentleman presented with multiple medical history, currently is feeling better. The patient wants to go home. Vascular surgery also cleared the patient for discharge. I would recommend the patient be discharged and follow closely in the outpatient setting and recommended EtOH and alcohol cessation. Repeat labs with the primary physician. Prognosis guarded. Further recommendations to follow. Please refer to the discharge reconciliation sheet for list of medications. MMODL / IJN: [id number] /
--- NOTE | 2024-07-07 23:23 | P.DS ---
Providers Date of admission: 07/03/24 19:36 Expected date of discharge: 07/04/24 Attending physician: Augustina Bartlett Consults: 07/03/24 19:36 Consult Physician Routine Consulting Provider: Bennett Sparks Consult Reason/Comments: AAA Do you want consulting provider notified?: Yes Consult Physician Routine Consulting Provider: Remberto York Consult Reason/Comments: ABpain Do you want consulting provider notified?: Yes Primary care physician: Scott Hernandez Hospital Course: Final diagnosis Abdominal pain, possible acute on chronic secondary to mesenteric ischemia History of chronic spinal muscular atrophy occlusion and reconstruction Continued ongoing nicotine dependence History of EtOH Hypertension Elevated white blood count History of coronary artery disease with stenting Obesity with a BMI of 30.7 history of sleep apnea GI prophylaxis DVT prophylaxis Full code Discharge disposition Patient is being discharged in a stable condition with guarded prognosis to home. Patient will follow-up with Dr. Hernandez in the outpatient setting upon discharge. Patient is to continue with medications and close outpatient follow- up with vascular surgery as scheduled. Total time taken is greater than 35 minutes. Hospital course This is a 64-year-old male who was recently admitted with abdominal pain and history of calcifications with SMA occlusion and reconstruction. Patient was evaluated by vascular surgery recommending outpatient follow-up and has cleared the patient for discharge. Patient is keen on going home no abdominal pain. Please refer to other consultation notes for further HPI. Currently no reports of chest pain, shortness of breath, or palpitations. Patient is afebrile. No reports of nausea or vomiting and patient is tolerating diet. Patient will be discharged home today. Guarded prognosis for readmissions. Physical exam: Gen: This is a 64-year-old male who is awake, alert and oriented x 3, well- developed, obese HEENT: Head is atraumatic, normocephalic. Pupils equal, round. Sclerae is anicteric. NECK: Supple. No JVD. No lymphadenopathy. No thyromegaly. LUNGS: Diminished breath sounds bilaterally otherwise clear to auscultation. No wheezes or rhonchi. No intercostal retractions. HEART: S1, S2 are muffled ABDOMEN: Soft. Obese, bowel sounds are present. No masses. No tenderness. EXTREMITIES: No pedal edema. No calf tenderness. NEUROLOGICAL: Patient is awake, alert and oriented x3. Cranial nerves 2 through 12 are grossly intact. Please refer to medication reconciliation sheet for a list of medications. The impression and plan of care has been dictated by Dana Oquendo, Nurse Practitioner as directed. Dr. Dhruv MD I have performed a history and examination and MDM of this patient, discussed the same with the dictator, and agree with the dictator's assessment and plan as written ,documented as a scribe. Based on total visit time, I have performed more than 50% of the visit. Patient Condition at Discharge: Fair Plan - Discharge Summary New Discharge Prescriptions: Continue hydroCHLOROthiazide [Hydrodiuril] 25 mg PO DAILY cilostazoL [Pletal] 100 mg PO AC-BID Atorvastatin [Lipitor] 40 mg PO DAILY Fenofibrate Nanocrystallized [Fenofibrate] 145 mg PO DAILY Apixaban [Eliquis] 5 mg PO BID #90 tab lisinopriL [Zestril] 40 mg PO DAILY amLODIPine [Norvasc] 10 mg PO DAILY Discharge Medication List Atorvastatin [Lipitor] 40 mg PO DAILY 06/12/24 [History] Fenofibrate Nanocrystallized [Fenofibrate] 145 mg PO DAILY 06/12/24 [History] amLODIPine [Norvasc] 10 mg PO DAILY 06/12/24 [History] cilostazoL [Pletal] 100 mg PO AC-BID 06/12/24 [History] hydroCHLOROthiazide [Hydrodiuril] 25 mg PO DAILY 06/12/24 [History] lisinopriL [Zestril] 40 mg PO DAILY 06/12/24 [History] Apixaban [Eliquis] 5 mg PO BID #90 tab 06/14/24 [Rx] Follow up Appointment(s)/Referral(s): Scott Hernandez MD [Primary Care Provider] - 1-2 days Ambulatory/Diagnostic Orders: Complete Blood Count w/diff [LAB.AMB] Time Frame: 3 Days, Location: None Selected Activity/Diet/Wound Care/Special Instructions: Activity limited until follow-up Follow-up with vascular surgery outpatient Follow-up with general surgery outpatient to discuss possible endoscopic intervention Continue take medications as prescribed Recommend complete tobacco cessation Complete alcohol cessation Repeat labs in 2 to 3 days Follow-up with primary care provider on discharge Discharge Disposition: HOME SELF-CARE
== END 2024-07-04 16:39 | disposition home or self-care (01) ==
LOC: EC 16:18 → 6NMEDSUR 19:36 → 1SOBS 07-04 05:44
PROVIDERS: ADMIT Hospitalist; ATTEND Hospitalist
DX: R10.84 Generalized abdominal pain (principal); R11.2 Nausea with vomiting, unspecified; D72.829 Elevated white blood cell count, unspecified; I71.40 Abdominal aortic aneurysm, without rupture, unspecified; I48.91 Unspecified atrial fibrillation; I73.9 Peripheral vascular disease, unspecified; I10 Essential (primary) hypertension; I25.10 Atherosclerotic heart disease of native coronary artery without angina pectoris; G47.33 Obstructive sleep apnea (adult) (pediatric); G12.9 Spinal muscular atrophy, unspecified; F17.210 Nicotine dependence, cigarettes, uncomplicated; E66.9 Obesity, unspecified; Z68.30 Body mass index [BMI] 30.0-30.9, adult; Z95.5 Presence of coronary angioplasty implant and graft; Z79.01 Long term (current) use of anticoagulants; Z79.02 Long term (current) use of antithrombotics/antiplatelets; Z79.899 Other long term (current) drug therapy
CPT/HCPCS: 96376; 96361; 96365; 96366; 96375; 99285; 36415; 80053 ×2; 85652; 82150; 83605; 83690 ×2; 83735 ×2; 84100 ×2; 84484; 85025 ×2; 85610; 85730; 86140; 74174; G0378 ×2; G0480; J2270; J2405; J0295; Q9967; J2470 ×2; 80320

== ENCOUNTER 2024-07-22 20:42 | Observation (INO) | payer MEDICARE, OTHER ==
[2024-07-22] MEDS: SODIUM CHLORIDE 0.9% 1,000 ML IV STA (21:44)
[2024-07-22] MEDS: MORPHINE SULFATE 4 MG/ML SYRINGE IV STA (21:44)
--- NOTE | 2024-07-22 21:57 | ED ---
General Adult HPI - General Chief complaint: Abdominal Pain Stated complaint: abd pain Time Seen by Provider: 07/22/24 21:09 Source: patient, EMS Mode of arrival: EMS Limitations: no limitations - History of Present Illness Initial comments: Dictation was produced using [employer] dictation software. please excuse any grammatical, word or spelling errors. Chief Complaint: 64-year-old male with abdominal pain History of Present Illness: Patient 64-year-old male presents to the emergency department for abdominal pain. Patient states he has been having abdominal pain for the last 6-1/2 weeks. States he has been to the hospital multiple occasions. Was not able to follow-up with GI or vascular surgery. Apparently patient was recently admitted where multiple workups were done including evaluations by general surgery and vascular surgery. Denies any fever chills or night sweats. States that the pain is to his epigastrium now radiates to his back. States that he is unable to eat. The ROS documented in this emergency department record has been reviewed and confirmed by me. Those systems with pertinent positive or negative responses have been documented in the HPI. All other systems are other negative and/or noncontributory. - Related Data Home Medications Medication Instructions Recorded Confirmed Atorvastatin [Lipitor] 40 mg PO DAILY 06/12/24 07/03/24 Fenofibrate Nanocrystallized 145 mg PO DAILY 06/12/24 07/03/24 [Fenofibrate] amLODIPine [Norvasc] 10 mg PO DAILY 06/12/24 07/03/24 cilostazoL [Pletal] 100 mg PO AC-BID 06/12/24 07/03/24 hydroCHLOROthiazide [Hydrodiuril] 25 mg PO DAILY 06/12/24 07/03/24 lisinopriL [Zestril] 40 mg PO DAILY 06/12/24 07/03/24 Previous Rx's Medication Instructions Recorded Apixaban [Eliquis] 5 mg PO BID #90 tab 06/14/24 Allergies Allergy/AdvReac Type Severity Reaction Status Date / Time No Known Allergies Allergy Verified 07/22/24 20:50 Review of Systems ROS Statement: Those systems with pertinent positive or pertinent negative responses have been documented in the HPI. ROS Other: All systems not noted in ROS Statement are negative. Past Medical History Past Medical History: Coronary Artery Disease (CAD), Hypertension, Sleep Apnea/CPAP/BIPAP Additional Past Medical History / Comment(s): PAD History of Any Multi-Drug Resistant Organisms: None Reported Past Surgical History: Heart Catheterization With Stent Additional Past Surgical History / Comment(s): bypass left leg Past Anesthesia/Blood Transfusion Reactions: No Reported Reaction Past Psychological History: No Psychological Hx Reported Smoking Status: Current some day smoker Past Alcohol Use History: None Reported Past Drug Use History: None Reported General Exam - General Exam Comments Initial Comments: PHYSICAL EXAM: General Impression: Alert and oriented x3, not in acute distress HEENT: Normocephalic atraumatic, extra-ocular movements intact, pupils equal and reactive to light bilaterally, mucous membranes moist. Cardiovascular: Heart regular rate and rhythm Chest: Able to complete full sentences, no retractions, no tachypnea Abdomen: abdomen soft, non-tender, non-distended, no organomegaly Musculoskeletal: Pulses present and equal in all extremities, no peripheral edema Motor: no focal deficits noted Neurological: CN II-XII grossly intact, no focal motor or sensory deficits noted Skin: Intact with no visualized rashes Psych: Normal affect and mood Limitations: no limitations Course Vital Signs 07/22/24 07/22/24 20:45 22:41 Temperature 98.2 F Pulse Rate 79 80 Respiratory 18 16 Rate Blood Pressure 147/79 126/58 O2 Sat by Pulse 97 98 Oximetry Medical Decision Making - Medical Decision Making Was pt. sent in by a medical professional or institution ([facility], SIGNALING PROJECT ENGINEER, urgent care, hospital, or [place] health care facility...) When possible be specific @ -No Did you speak to anyone other than the patient for history (EMS, parent, family, police, friend...)? What history was obtained from this source @ -No Did you review nursing and triage notes (agree or disagree)? Why? @ -I reviewed and agree with nursing and triage notes Were old charts reviewed (outside hosp., previous admission, EMS record, old EKG, old radiological studies, urgent care reports/EKG's, [place] health care facility records)? Report findings @ -Previous charting was reviewed including discharge summaries, surgical evaluations and recent imaging studies showing patient has history of SMA occlusion with reconstitution. Differential Diagnosis (chest pain, altered mental status, abdominal pain women, abdominal pain men, vaginal bleeding, musculoskeletal, weakness, fever, dyspnea, syncope, headache, dizziness, GI bleed, back pain, seizure, CVA, palpatations, mental health)? @ -Differential Abdominal Pain Men: Appendicitis, cholecystitis, diverticulosis, ischemic bowel, pancreatitis, hepatitis, UTI, gastroenteritis, AAA, incarcerated hernia, bowel obstruction, constipation, inflammatory bowel, hepatitis, peptic ulcer disease, splenic infarction, perforated viscus, testicular torsion, this is not meant to be an all-inclusive list EKG interpreted by me (3pts min.). @ -None done X-rays interpreted by me (1pt min.). @ -KUB x-ray is unremarkable CT interpreted by me (1pt min.). @ -None done U/S interpreted by me (1pt. min.). @ -None done What testing was considered but not performed or refused? (CT, X-rays, U/S, labs)? Why? @ -CT was considered however patient had extensive workup recently. What meds were considered but not given or refused? Why? @ -None Was smoking cessation discussed for >3mins.? @ -No Were there social determinants of health that impacted care today? How? (Homelessness, low income, unemployed, alcoholism, drug addiction, t ransportation, low edu. Level, literacy, decrease access to med. care, prison, rehab)? @ -No Was there de-escalation of care discussed even if they declined (Discuss DNR or withdrawal of care, Hospice)? DNR status @ -No What co-morbidities impacted this encounter? (DM, HTN, Smoking, COPD, CAD, Cance r, CVA, ARF, Chemo, Hep., AIDS, mental health diagnosis, sleep apnea, morbid obesity)? @ -None Was patient admitted / discharged? Hospital course, mention meds given and route, prescriptions, significant lab abnormalities, going to OR and other pertinent info. @ -64-year-old male with known history of SMA occlusion presents to the ER for abdominal pain. Vital signs stable. Patient no acute distress. Labs unremarkable. Given patient has history of SMA occlusion with what he reports as postprandial abdominal pain. Will be admitted for observation with consultation of surgery. Case discussed with hospitalist for admission Did you discuss the management of the patient with other professionals (professionals i.e. , PA, SIGNALING PROJECT ENGINEER, lab, RT, psych nurse, elementary school social worker, cottage supervisor, teacher, postal delivery officer, case management rn)? Give summary @ -See above Was critical care preformed (if so, how long)? @ -No Undiagnosed new problem with uncertain prognosis? @ -No Drug Therapy requiring intensive monitoring for toxicity (Heparin, Nitro, Insulin, Cardizem)? @ -No Were any procedures done? @ -No Diagnosis/symptom? Acute, or Chronic, or Acute on Chronic? Uncomplicated (without systemic symptoms) or Complicated (systemic symptoms)? @ -Abdominal pain with history of SMA occlusion Side effects of treatment? @ -No Exacerbation, Progression, or Severe Exacerbation? @ -No Poses a threat to life or bodily function? How? (Chest pain, USA, NV, pneumonia, PE, COPD, DKA, ARF, appy, cholecystitis, CVA, Diverticulitis, Homicidal, Suicidal, threat to staff... and all critical care pts) @ -yes - Lab Data Result diagrams: 07/22/24 21:47 07/22/24 21:47 Lab Results 07/22/24 07/22/24 07/22/24 Range/Units 21:47 21:47 21:47 WBC 13.94 H (4.50-10.00) 10*3/uL RBC 4.78 (4.40-5.60) 10*6/uL Hgb 14.9 (13.0-17.0) g/dL Hct 41.4 (39.6-50.0) % MCV 86.6 (80.0-97.0) fL MCH 31.2 (27.0-32.0) pg MCHC 36.0 (32.0-37.0) g/dL Plt Count 348 (140-440) 10*3/uL MPV 10.4 (9.5-12.2) fL Immature Gran % (Auto) 0.6 % Neutrophils % 69.2 % Lymphocytes % 18.0 % Monocytes % 10.3 % Eosinophils % 1.0 % Basophils % 0.9 % Immature Gran # 0.08 H (0.00-0.04) 10*3/uL Neutrophils # 9.65 H (1.80-7.70) 10*3/uL Lymphocytes # 2.51 (0.90-5.00) 10*3/uL Monocytes # 1.43 H (0.20-1.00) 10*3/uL Eosinophils # 0.14 (0.04-0.35) 10*3/uL Basophils # 0.13 H (0.00-0.10) 10*3/uL Sodium 133 L (137-145) mmol/L Potassium 4.8 (3.5-5.1) mmol/L Chloride 104 (98-107) mmol/L Carbon Dioxide 18 L (22-30) mmol/L Anion Gap 11 mmol/L BUN 48 H (9-20) mg/dL Creatinine 1.49 H (0.66-1.25) mg/dL Est GFR (CKD-EPI)AfAm 56 (>60 ml/min/1.73 sqM) Est GFR (CKD-EPI)NonAf 49 (>60 ml/min/1.73 sqM) Glucose 105 H (74-99) mg/dL Plasma Lactic Acid Liam 1.1 (0.7-2.0) mmol/L Calcium 9.3 (8.4-10.2) mg/dL Total Bilirubin 1.0 (0.2-1.3) mg/dL AST 27 (17-59) U/L ALT 17 (4-49) U/L Alkaline Phosphatase 32 L (38-126) U/L Total Protein 6.9 (6.3-8.2) g/dL Albumin 4.2 (3.5-5.0) g/dL Lipase 38 (23-300) U/L Disposition Clinical Impression: Abdominal pain Disposition: ADMITTED IP TO THIS [facility] Condition: Fair Referrals: Scott Hernandez MD [Primary Care Provider] - 1-2 days Decision Time: 00:11
[2024-07-22 22:00] LABS: Basophils # (A) 0.13 10*3/uL (0.00-0.10); Basophils % (A) 0.9 %; Eosinophils # (A) 0.14 10*3/uL (0.04-0.35); HCT 41.4 % (39.6-50.0); HGB 14.9 g/dL (13.0-17.0); Lymphocytes # (A) 2.51 10*3/uL (0.90-5.00); MCH 31.2 pg (27.0-32.0); MCV 86.6 fL (80.0-97.0); Mean Platelet Volume 10.4 fL (9.5-12.2); Monocytes # (A) 1.43 10*3/uL (0.20-1.00); Monocytes % (A) 10.3 %; Neutrophils # (A) 9.65 10*3/uL (1.80-7.70); Neutrophils % (A) 69.2 %; Platelet Count 348 10*3/uL (140-440); RBC 4.78 10*6/uL (4.40-5.60); WBC 13.94 10*3/uL (4.50-10.00)
--- NOTE | 2024-07-22 22:08 | XR ---
EXAMINATION TYPE: XR KUB DATE OF EXAM: 07/22/2024 9:43 PM COMPARISON: None. CLINICAL INDICATION: Male, 64 years old with history of abdominal pain, TECHNIQUE: XR KUB view(s) obtained. FINDINGS: Nonspecific bowel gas. Small bowel gas and colonic bowel gas is present. No mass effect is evident. N o suspicious air-fluid levels are evident. No free air is identified. Psoas margins are normal. No organomegaly is present. Stents is in the right femoral artery and right iliac artery vascular calcifications within the aorta .. IMPRESSION: 1. Nonspecific abdomen [facility], , 07/22/2024 10:05 PM
[2024-07-22 23:24] LABS: ALT 17 U/L (4-49); African American GFR (CKD) 56 (>60 ml/min/1.73 sqM); Anion Gap 11 mmol/L; Blood Urea Nitrogen 48 mg/dL (9-20); Calcium 9.3 mg/dL (8.4-10.2); Carbon Dioxide 18 mmol/L (22-30); Chloride 104 mmol/L (98-107); Glucose 105 mg/dL (74-99); Lipase 38 U/L (23-300); Non-African American GFR(CKD) 49 (>60 ml/min/1.73 sqM); Sodium 133 mmol/L (137-145)
[2024-07-22 23:35] LABS: AST 27 U/L (17-59); Albumin 4.2 g/dL (3.5-5.0); Alkaline Phosphatase 32 U/L (38-126); Potassium 4.8 mmol/L (3.5-5.1); Total Protein 6.9 g/dL (6.3-8.2)
[2024-07-23] MEDS ORDERED: NALOXONE 0.4 MG/ML 1 ML VIAL IV PRN (00:06)
[2024-07-23] MEDS ORDERED: ACETAMINOPHEN TAB 325 MG TAB PO PRN (00:06)
[2024-07-23] MEDS: SODIUM CHLORIDE 0.9% 1,000 ML IV SCH (00:17)
--- NOTE | 2024-07-23 12:04 | P.GSCN ---
History of Present Illness Consult date: 07/23/24 History of present illness: 64-year-old male presents to the emergency department with complaint of abdominal pain. He has been evaluated previously secondary to this pain. He did have workup during his previous admission with notable CTA of the abdomen and pelvis concerning for severe atherosclerotic disease and occlusion of the SMA with reconstitution. Working diagnosis of chronic mesenteric ischemia was made. Patient is complaining of continued abdominal pain usually about 2 hours after eating. He states the past week was quite painful. He also was recently started on anticoagulation about 2 weeks ago. Review of Systems All systems: negative Past Medical History Past Medical History: Coronary Artery Disease (CAD), Hypertension, Sleep Apnea/CPAP/BIPAP Additional Past Medical History / Comment(s): PAD History of Any Multi-Drug Resistant Organisms: None Reported Past Surgical History: Heart Catheterization With Stent Additional Past Surgical History / Comment(s): bypass left leg Past Anesthesia/Blood Transfusion Reactions: No Reported Reaction Past Psychological History: No Psychological Hx Reported Smoking Status: Current some day smoker Past Alcohol Use History: None Reported Past Drug Use History: None Reported Medications and Allergies Home Medications Medication Instructions Recorded Confirmed Type Atorvastatin [Lipitor] 40 mg PO DAILY 06/12/24 07/23/24 History Fenofibrate Nanocrystallized 145 mg PO DAILY 06/12/24 07/23/24 History [Fenofibrate] amLODIPine [Norvasc] 10 mg PO DAILY 06/12/24 07/23/24 History cilostazoL [Pletal] 100 mg PO BID 06/12/24 07/23/24 History hydroCHLOROthiazide [Hydrodiuril] 25 mg PO DAILY 06/12/24 07/23/24 History lisinopriL [Zestril] 40 mg PO DAILY 06/12/24 07/23/24 History Apixaban [Eliquis] 5 mg PO BID #90 tab 06/14/24 07/23/24 Rx Allergies Allergy/AdvReac Type Severity Reaction Status Date / Time No Known Allergies Allergy Verified 07/23/24 09:23 Surgical - Exam Osteopathic Statement: *. No significant issues noted on an osteopathic structural exam other than those noted in the History and Physical/Consult. Vital Signs Temp Pulse Resp BP Pulse Ox 98.2 F 79 18 147/79 97 07/22/24 20:45 07/22/24 20:45 07/22/24 20:45 07/22/24 20:45 07/22/24 20:45 - General well nourished, no distress - Eyes normal ocular movement - Neck trachea midline - Abdomen Abdomen: soft, non tender - Neurologic normal coordination, normal sensation - Psychiatric oriented to time, oriented to person, oriented to place Results - Labs 07/22/24 21:47 07/22/24 21:47 Abnormal Lab Results - Last 24 Hours (Table) 07/22/24 07/22/24 Range/Units 21:47 21:47 WBC 13.94 H (4.50-10.00) 10*3/uL Immature Gran # 0.08 H (0.00-0.04) 10*3/uL Neutrophils # 9.65 H (1.80-7.70) 10*3/uL Monocytes # 1.43 H (0.20-1.00) 10*3/uL Basophils # 0.13 H (0.00-0.10) 10*3/uL Sodium 133 L (137-145) mmol/L Carbon Dioxide 18 L (22-30) mmol/L BUN 48 H (9-20) mg/dL Creatinine 1.49 H (0.66-1.25) mg/dL Glucose 105 H (74-99) mg/dL Alkaline Phosphatase 32 L (38-126) U/L Diabetes panel 07/22/24 Range/Units 21:47 Sodium 133 L (137-145) mmol/L Potassium 4.8 (3.5-5.1) mmol/L Chloride 104 (98-107) mmol/L Carbon Dioxide 18 L (22-30) mmol/L BUN 48 H (9-20) mg/dL Creatinine 1.49 H (0.66-1.25) mg/dL Glucose 105 H (74-99) mg/dL Calcium 9.3 (8.4-10.2) mg/dL AST 27 (17-59) U/L ALT 17 (4-49) U/L Alkaline Phosphatase 32 L (38-126) U/L Total Protein 6.9 (6.3-8.2) g/dL Albumin 4.2 (3.5-5.0) g/dL Calcium panel 07/22/24 Range/Units 21:47 Calcium 9.3 (8.4-10.2) mg/dL Albumin 4.2 (3.5-5.0) g/dL Pituitary panel 07/22/24 Range/Units 21:47 Sodium 133 L (137-145) mmol/L Potassium 4.8 (3.5-5.1) mmol/L Chloride 104 (98-107) mmol/L Carbon Dioxide 18 L (22-30) mmol/L BUN 48 H (9-20) mg/dL Creatinine 1.49 H (0.66-1.25) mg/dL Glucose 105 H (74-99) mg/dL Calcium 9.3 (8.4-10.2) mg/dL Adrenal panel 07/22/24 Range/Units 21:47 Sodium 133 L (137-145) mmol/L Potassium 4.8 (3.5-5.1) mmol/L Chloride 104 (98-107) mmol/L Carbon Dioxide 18 L (22-30) mmol/L BUN 48 H (9-20) mg/dL Creatinine 1.49 H (0.66-1.25) mg/dL Glucose 105 H (74-99) mg/dL Calcium 9.3 (8.4-10.2) mg/dL Total Bilirubin 1.0 (0.2-1.3) mg/dL AST 27 (17-59) U/L ALT 17 (4-49) U/L Alkaline Phosphatase 32 L (38-126) U/L Total Protein 6.9 (6.3-8.2) g/dL Albumin 4.2 (3.5-5.0) g/dL Assessment and Plan Plan: 64-year-old male with likely chronic mesenteric ischemia. During my examination, his abdominal pain had resolved. Recommend vascular reevaluation. No plan for acute surgical intervention. Can continue anticoagulation from general surgery standpoint. Diet to be advanced as tolerated.
--- NOTE | 2024-07-23 13:35 | P.GSCN ---
History of Present Illness Consult date: 07/23/24 Reason for Consult: Chronic mesenteric ischemia Requesting physician: Danay Crain History of present illness: 64-year-old male with history of SMA occlusive disease, mesenteric ischemia, AAA and chronic abdominal pain presents to the emergency department with complaint of abdominal pain. He states he gets the pain every time he eats especially certain foods or if he tries to eat a significant amount. He states that the pain is cramping in his stomach as well as sharp at the epigastric region. He has had multiple episodes and multiple episodes of admission to the hospital as well as ER visits due to this discomfort. He did have a previous workup with CTA of the abdomen and pelvis concerning for severe atherosclerotic disease and occlusion of the SMA with reconstitution. Dr. Garza has seen him in the office it is in current process of workup for mesenteric ischemia. Currently his abdominal pain has improved and he has eaten breakfast which seemed to not have caused him significant pain at this time. He denies any nausea, vomiting, bowel habit changes, fevers, chills, chest pain or or shortness of breath. Review of Systems All systems: negative (What is mentioned in the HPI or past medical history) Past Medical History Past Medical History: Coronary Artery Disease (CAD), Hypertension, Sleep Apnea/CPAP/BIPAP Additional Past Medical History / Comment(s): PAD History of Any Multi-Drug Resistant Organisms: None Reported Past Surgical History: Heart Catheterization With Stent Additional Past Surgical History / Comment(s): bypass left leg Past Anesthesia/Blood Transfusion Reactions: No Reported Reaction Past Psychological History: No Psychological Hx Reported Smoking Status: Current some day smoker Past Alcohol Use History: None Reported Past Drug Use History: None Reported Medications and Allergies Home Medications Medication Instructions Recorded Confirmed Type Atorvastatin [Lipitor] 40 mg PO DAILY 06/12/24 07/23/24 History Fenofibrate Nanocrystallized 145 mg PO DAILY 06/12/24 07/23/24 History [Fenofibrate] amLODIPine [Norvasc] 10 mg PO DAILY 06/12/24 07/23/24 History cilostazoL [Pletal] 100 mg PO BID 06/12/24 07/23/24 History hydroCHLOROthiazide [Hydrodiuril] 25 mg PO DAILY 06/12/24 07/23/24 History lisinopriL [Zestril] 40 mg PO DAILY 06/12/24 07/23/24 History Apixaban [Eliquis] 5 mg PO BID #90 tab 06/14/24 07/23/24 Rx Allergies Allergy/AdvReac Type Severity Reaction Status Date / Time No Known Allergies Allergy Verified 07/23/24 09:23 Surgical - Exam Vital Signs Temp Pulse Resp BP Pulse Ox 98.2 F 79 18 147/79 97 07/22/24 20:45 07/22/24 20:45 07/22/24 20:45 07/22/24 20:45 07/22/24 20:45 Patient Seen Date: 07/23/24 Patient Seen Time: 13:00 - General well developed, well nourished, no distress - Eyes PERRL, normal ocular movement - ENT normal pinna, normal nares - Neck no masses, no bruits - Respiratory normal expansion - Cardiovascular Rhythm: regular - Abdomen Abdomen: soft, non tender - Integumentary no rash - Neurologic normal coordination, normal sensation - Psychiatric oriented to time, oriented to person, oriented to place, speech is normal Palpable DP and PT pulse bilaterally Results - Labs 07/22/24 21:47 07/22/24 21:47 Abnormal Lab Results - Last 24 Hours (Table) 07/22/24 07/22/24 Range/Units 21:47 21:47 WBC 13.94 H (4.50-10.00) 10*3/uL Immature Gran # 0.08 H (0.00-0.04) 10*3/uL Neutrophils # 9.65 H (1.80-7.70) 10*3/uL Monocytes # 1.43 H (0.20-1.00) 10*3/uL Basophils # 0.13 H (0.00-0.10) 10*3/uL Sodium 133 L (137-145) mmol/L Carbon Dioxide 18 L (22-30) mmol/L BUN 48 H (9-20) mg/dL Creatinine 1.49 H (0.66-1.25) mg/dL Glucose 105 H (74-99) mg/dL Alkaline Phosphatase 32 L (38-126) U/L Diabetes panel 07/22/24 Range/Units 21:47 Sodium 133 L (137-145) mmol/L Potassium 4.8 (3.5-5.1) mmol/L Chloride 104 (98-107) mmol/L Carbon Dioxide 18 L (22-30) mmol/L BUN 48 H (9-20) mg/dL Creatinine 1.49 H (0.66-1.25) mg/dL Glucose 105 H (74-99) mg/dL Calcium 9.3 (8.4-10.2) mg/dL AST 27 (17-59) U/L ALT 17 (4-49) U/L Alkaline Phosphatase 32 L (38-126) U/L Total Protein 6.9 (6.3-8.2) g/dL Albumin 4.2 (3.5-5.0) g/dL Calcium panel 07/22/24 Range/Units 21:47 Calcium 9.3 (8.4-10.2) mg/dL Albumin 4.2 (3.5-5.0) g/dL Pituitary panel 07/22/24 Range/Units 21:47 Sodium 133 L (137-145) mmol/L Potassium 4.8 (3.5-5.1) mmol/L Chloride 104 (98-107) mmol/L Carbon Dioxide 18 L (22-30) mmol/L BUN 48 H (9-20) mg/dL Creatinine 1.49 H (0.66-1.25) mg/dL Glucose 105 H (74-99) mg/dL Calcium 9.3 (8.4-10.2) mg/dL Adrenal panel 07/22/24 Range/Units 21:47 Sodium 133 L (137-145) mmol/L Potassium 4.8 (3.5-5.1) mmol/L Chloride 104 (98-107) mmol/L Carbon Dioxide 18 L (22-30) mmol/L BUN 48 H (9-20) mg/dL Creatinine 1.49 H (0.66-1.25) mg/dL Glucose 105 H (74-99) mg/dL Calcium 9.3 (8.4-10.2) mg/dL Total Bilirubin 1.0 (0.2-1.3) mg/dL AST 27 (17-59) U/L ALT 17 (4-49) U/L Alkaline Phosphatase 32 L (38-126) U/L Total Protein 6.9 (6.3-8.2) g/dL Albumin 4.2 (3.5-5.0) g/dL Assessment and Plan Assessment: Chronic mesenteric ischemia Chronic SMA occlusion with reconstitution Infrarenal AAA Plan: Reviewed CTA from previous hospitalization with him in full detail which does demonstrate significant occlusion of the SMA with reconstitution distally. There is dense calcification noted throughout the celiac and SMA vessels which may make endovascular stenting more difficult. I did discuss with him options which he states he has had these discussed with him in the past with Dr. Garza. I will discuss with her timing for possible attempt at revascularization due to the fact that he has had multiple hospitalizations and visits for abdominal pain. We also discussed his aneurysm which does not meet criteria for repair at this time. Thank you for the consultation if you have any questions please feel free to contact us.
--- NOTE | 2024-07-23 19:03 | P.HPIM ---
History of Present Illness H&P Date: 07/23/24 Chief Complaint: Abdominal pain 64-year-old male, history of hypertension, hyperlipidemia presents to the emergency department with complaint of abdominal pain. He has been evaluated previously secondary to this pain. He did have workup during his previous admission with notable CTA of the abdomen and pelvis concerning for severe atherosclerotic disease and occlusion of the SMA with reconstitution. Working diagnosis of chronic mesenteric ischemia was made. Patient is complaining of continued abdominal pain usually about 2 hours after eating. He states the past week was quite painful. He also was recently started on anticoagulation about 2 weeks ago. Blood work reveals WBC of 13.9, hemoglobin of 14.9 and platelet count of 348, sodium 133, potassium 4.8, BUN/creatinine of 48/1.49 and blood glucose of 105 Abdominal x-ray was found to be nonspecific Review of Systems REVIEW OF SYSTEMS: CONSTITUTIONAL: No fever, no malaise, no fatigue. HEENT: No recent visual problems or hearing problems. Denied any sore throat. CARDIOVASCULAR: No chest pain, orthopnea, PND, no palpitations, no syncope. PULMONARY: No shortness of breath, no cough, no hemoptysis. GASTROINTESTINAL: No diarrhea, no nausea, no vomiting, no abdominal pain. NEUROLOGICAL: No headaches, no weakness, no numbness. HEMATOLOGICAL: Denies any bleeding or petechiae. GENITOURINARY: Denies any burning micturition, frequency, or urgency. MUSCULOSKELETAL/RHEUMATOLOGICAL: Denies any joint pain, swelling, or any muscle pain. ENDOCRINE: Denies any polyuria or polydipsia. The rest of the 14-point review of systems is negative. Past Medical History Past Medical History: Coronary Artery Disease (CAD), Hypertension, Sleep Apnea/CPAP/BIPAP Additional Past Medical History / Comment(s): PAD History of Any Multi-Drug Resistant Organisms: None Reported Past Surgical History: Heart Catheterization With Stent Additional Past Surgical History / Comment(s): bypass left leg Past Anesthesia/Blood Transfusion Reactions: No Reported Reaction Past Psychological History: No Psychological Hx Reported Smoking Status: Current some day smoker Past Alcohol Use History: None Reported Past Drug Use History: None Reported Medications and Allergies Home Medications Medication Instructions Recorded Confirmed Type Atorvastatin [Lipitor] 40 mg PO DAILY 06/12/24 07/23/24 History Fenofibrate Nanocrystallized 145 mg PO DAILY 06/12/24 07/23/24 History [Fenofibrate] amLODIPine [Norvasc] 10 mg PO DAILY 06/12/24 07/23/24 History cilostazoL [Pletal] 100 mg PO BID 06/12/24 07/23/24 History hydroCHLOROthiazide [Hydrodiuril] 25 mg PO DAILY 06/12/24 07/23/24 History lisinopriL [Zestril] 40 mg PO DAILY 06/12/24 07/23/24 History Apixaban [Eliquis] 5 mg PO BID #90 tab 06/14/24 07/23/24 Rx Allergies Allergy/AdvReac Type Severity Reaction Status Date / Time No Known Allergies Allergy Verified 07/23/24 09:23 Physical Exam Vitals: Vital Signs Temp Pulse Pulse Resp BP BP Pulse Ox 07/23/24 08:00 97.9 F 60 14 114/65 98 07/23/24 05:00 69 16 130/65 95 07/23/24 03:02 59 L 16 118/57 95 07/22/24 22:41 80 16 126/58 98 07/22/24 20:45 98.2 F 79 18 147/79 97 Intake and Output 07/22/24 07/23/24 07/23/24 22:59 06:59 14:59 Other: Weight 95.708 kg 95.708 kg General Impression: Alert and oriented x3, not in acute distress HEENT: Normocephalic atraumatic, extra-ocular movements intact, pupils equal and reactive to light bilaterally, mucous membranes moist. Cardiovascular: Heart regular rate and rhythm Chest: Able to complete full sentences, no retractions, no tachypnea Abdomen: abdomen soft, non-tender, non-distended, no organomegaly Musculoskeletal: Pulses present and equal in all extremities, no peripheral edema Motor: no focal deficits noted Neurological: CN II-XII grossly intact, no focal motor or sensory deficits noted Skin: Intact with no visualized rashes Psych: Normal affect and mood Results CBC & Chem 7: 07/22/24 21:47 07/22/24 21:47 Labs: Abnormal Lab Results - Last 24 Hours (Table) 07/22/24 07/22/24 Range/Units 21:47 21:47 WBC 13.94 H (4.50-10.00) 10*3/uL Immature Gran # 0.08 H (0.00-0.04) 10*3/uL Neutrophils # 9.65 H (1.80-7.70) 10*3/uL Monocytes # 1.43 H (0.20-1.00) 10*3/uL Basophils # 0.13 H (0.00-0.10) 10*3/uL Sodium 133 L (137-145) mmol/L Carbon Dioxide 18 L (22-30) mmol/L BUN 48 H (9-20) mg/dL Creatinine 1.49 H (0.66-1.25) mg/dL Glucose 105 H (74-99) mg/dL Alkaline Phosphatase 32 L (38-126) U/L Thrombosis Risk Factor Assmnt - Choose All That Apply Each Factor Represents 1 point: Obesity (BMI >25) Each Risk Factor Represents 2 Points: Age 61-74 years Thrombosis Risk Factor Assessment Total Risk Factor Score: 3 Thrombosis Risk Factor Assessment Level: Moderate Risk Assessment and Plan Assessment: 1. Intractable abdominal pain -Patient has history of chronic SMA occlusion; imaging completed in the ED was unremarkable -Pain control with IV Dilaudid - General Surgery and vascular surgery is consulted 2. Acute renal injury; patient edel IV fluid; will monitor strict MITCH's, daily weights, renal function electrolytes, avoid nephrotoxins and hypotension 3. Mild leukocytosis; WBC 13.9; no signs of infection with lactic acid level of 1.1; likely reactive; monitor CBC 4. Hypertension; amlodipine 10 mg daily; hydrochlorothiazide 25 mg daily; lisinopril 40 mg daily 5. Hyperlipidemia; Lipitor 40 mg daily; fenofibrate 145 mg daily 6. PVD; Pletal 100 mg twice daily and Eliquis 5 mg twice daily 7. Chronic mesenteric ischemia/chronic SMA occlusion with reconstruction; - CTA completed previously reveals significant occlusion of the SMA with reconstruction distally; vascular surgery is consulted DVT prophylaxis; SCD/Eliquis CODE STATUS; full code
[2024-07-24 08:56] LABS: Eosinophils # (A) 0.16 10*3/uL (0.04-0.35); Eosinophils % (A) 1.6 %; HGB 13.5 g/dL (13.0-17.0); Lymphocytes # (A) 2.27 10*3/uL (0.90-5.00); Lymphocytes % (A) 23.3 %; MCH 29.6 pg (27.0-32.0); MCHC 33.8 g/dL (32.0-37.0); MCV 87.7 fL (80.0-97.0); Mean Platelet Volume 10.3 fL (9.5-12.2); Monocytes # (A) 0.72 10*3/uL (0.20-1.00); Monocytes % (A) 7.4 %; Neutrophils # (A) 6.48 10*3/uL (1.80-7.70); Neutrophils % (A) 66.5 %; Platelet Count 333 10*3/uL (140-440); RBC 4.56 10*6/uL (4.40-5.60); RDW 13.1 % (11.5-14.5); WBC 9.75 10*3/uL (4.50-10.00)
[2024-07-24 09:11] LABS: African American GFR (CKD) 88 (>60 ml/min/1.73 sqM); Anion Gap 7 mmol/L; Blood Urea Nitrogen 26 mg/dL (9-20); Calcium 9.3 mg/dL (8.4-10.2); Carbon Dioxide 25 mmol/L (22-30); Chloride 103 mmol/L (98-107); Glucose 107 mg/dL (74-99); Non-African American GFR(CKD) 76 (>60 ml/min/1.73 sqM); Sodium 135 mmol/L (137-145)
--- NOTE | 2024-07-24 11:04 | P.PN ---
Subjective Progress Note Date: 07/24/24 Patient seen and examined. Denies abdominal pain today. States that he has had a few meals without any major pain issues. Objective - Vital Signs Vital signs: Vital Signs Temp 98.2 F 07/24/24 08:02 Pulse 55 L 07/24/24 08:02 Resp 18 07/24/24 08:02 BP 138/72 07/24/24 08:02 Pulse Ox 94 L 07/24/24 08:02 FiO2 Intake & Output 07/23/24 07/24/24 07/24/24 18:59 06:59 18:59 Intake Total 500 Output Total 1 Balance 500 -1 Weight 95.708 kg Intake: Oral 500 Output: Urine 1 Other: # Voids 0 # Bowel Movements 1 - Constitutional General appearance: Present: cooperative, no acute distress - Gastrointestinal Gastrointestinal Comment(s): Soft, nontender - Labs CBC & Chem 7: 07/24/24 08:17 07/24/24 08:17 Labs: Abnormal Lab Results - Last 24 Hours (Table) 07/24/24 Range/Units 08:17 Sodium 135 L (137-145) mmol/L BUN 26 H (9-20) mg/dL Glucose 107 H (74-99) mg/dL Assessment and Plan Plan: 64-year-old male with concern for chronic mesenteric ischemia. Vascular surgery following, appreciate recommendations. No plan for acute surgical intervention from general surgery. Will defer to vascular surgery on their opinion.
[2024-07-24] MEDS: MORPHINE SULFATE 4 MG/ML SYRINGE IV PRN (16:03)
[2024-07-24] MEDS ORDERED: ONDANSETRON 4 MG/2 ML VIAL IVP PRN (16:16)
--- NOTE | 2024-07-24 17:22 | P.PN ---
Subjective Progress Note Date: 07/24/24 64-year-old male, history of hypertension, hyperlipidemia presents to the emergency department with complaint of abdominal pain. He has been evaluated previously secondary to this pain. He did have workup during his previous admission with notable CTA of the abdomen and pelvis concerning for severe athe rosclerotic disease and occlusion of the SMA with reconstitution. Working diagnosis of chronic mesenteric ischemia was made. Patient is complaining of continued abdominal pain usually about 2 hours after eating. He states the past week was quite painful. He also was recently started on anticoagulation about 2 weeks ago. Blood work reveals WBC of 13.9, hemoglobin of 14.9 and platelet count of 348, sodium 133, potassium 4.8, BUN/creatinine of 48/1.49 and blood glucose of 105 Abdominal x-ray was found to be nonspecific --Patient reports improvement in abdominal pain; some discomfort after meals Vital signs reviewed and stable with temperature of 98.7, pulse 61, respirations 17 and blood pressure 148/86 Blood work reveals WBC of 9.7, hemoglobin of 13.5 and platelet count of 333, sodium 135, potassium 4.2, BUN/creatinine of 26/1.06 which is improved from creatinine of 1.49 yesterday General Surgery on board with no plans for acute surgical intervention at this time Vascular surgery on board; CTA from previous hospitalization reviewed revealing significant occlusion of SMA; dense calcification throughout celiac SMA vessels which will make endovascular stenting more difficult -Vascular surgery planning for possible attempt at revascularization given multiple hospitalizations and visits for abdominal pain; timing of procedure to be discussed Objective - Vital Signs Vital signs: Vital Signs Temp 98.2 F 07/24/24 08:02 Pulse 55 L 07/24/24 08:02 Resp 18 07/24/24 08:02 BP 138/72 07/24/24 08:02 Pulse Ox 94 L 07/24/24 08:02 FiO2 Intake & Output 07/23/24 07/24/24 07/24/24 18:59 06:59 18:59 Intake Total 500 Output Total 1 Balance 500 -1 Weight 95.708 kg Intake: Oral 500 Output: Urine 1 Other: # Voids 0 # Bowel Movements 1 - Exam General Impression: Alert and oriented x3, not in acute distress HEENT: Normocephalic atraumatic, extra-ocular movements intact, pupils equal and reactive to light bilaterally, mucous membranes moist. Cardiovascular: Heart regular rate and rhythm Chest: Able to complete full sentences, no retractions, no tachypnea Abdomen: abdomen soft, non-tender, non-distended, no organomegaly Musculoskeletal: Pulses present and equal in all extremities, no peripheral e lorelei Motor: no focal deficits noted Neurological: CN II-XII grossly intact, no focal motor or sensory deficits noted Skin: Intact with no visualized rashes Psych: Normal affect and mood - Labs CBC & Chem 7: 07/24/24 08:17 07/24/24 08:17 Labs: Abnormal Lab Results - Last 24 Hours (Table) 07/24/24 Range/Units 08:17 Sodium 135 L (137-145) mmol/L BUN 26 H (9-20) mg/dL Glucose 107 H (74-99) mg/dL Assessment and Plan Assessment: 1. Intractable abdominal pain -Patient has history of chronic SMA occlusion; imaging completed in the ED was unremarkable -Pain control with IV Dilaudid - General Surgery and vascular surgery is consulted 2. Acute renal injury; patient edel IV fluid; will monitor strict MITCH's, daily weights, renal function electrolytes, avoid nephrotoxins and hypotension 3. Mild leukocytosis; WBC 13.9; no signs of infection with lactic acid level of 1.1; likely reactive; monitor CBC 4. Hypertension; amlodipine 10 mg daily; hydrochlorothiazide 25 mg daily; lisinopril 40 mg daily 5. Hyperlipidemia; Lipitor 40 mg daily; fenofibrate 145 mg daily 6. PVD; Pletal 100 mg twice daily and Eliquis 5 mg twice daily 7. Chronic mesenteric ischemia/chronic SMA occlusion with reconstruction; - CTA completed previously reveals significant occlusion of the SMA with reconstruction distally; vascular surgery is consulted DVT prophylaxis; SCD/Eliquis CODE STATUS; full code
[2024-07-24] MEDS: APIXABAN 5 MG TAB PO SCH (21:08)
[2024-07-24] MEDS: cilostazoL 100 MG TAB PO SCH (21:08)
[2024-07-25 04:12] LABS: African American GFR (CKD) >90 (>60 ml/min/1.73 sqM); Anion Gap 8 mmol/L; Blood Urea Nitrogen 19 mg/dL (9-20); Calcium 9.4 mg/dL (8.4-10.2); Carbon Dioxide 18 mmol/L (22-30); Chloride 109 mmol/L (98-107); Glucose 83 mg/dL (74-99); Non-African American GFR(CKD) >90 (>60 ml/min/1.73 sqM); Sodium 135 mmol/L (137-145)
[2024-07-25 04:17] LABS: Potassium 4.9 mmol/L (3.5-5.1)
[2024-07-25 07:11] VITALS: BP 139/66; PULSE 49; RESP 18; TEMP 97.9
[2024-07-25] MEDS: lisinopriL 20 MG TAB PO SCH (09:09)
[2024-07-25] MEDS: ATORVASTATIN 40 MG TAB PO SCH (09:09)
[2024-07-25] MEDS: amLODIPine 10 MG TAB PO SCH (09:10)
[2024-07-25] MEDS: hydroCHLOROthiazide 25 MG TAB PO SCH (09:10)
[2024-07-25] MEDS: FENOFIBRATE 160 MG TAB PO SCH (09:10)
--- NOTE | 2024-07-25 11:13 | P.PN ---
Subjective Progress Note Date: 07/25/24 Principal diagnosis: Abdominal pain Patient is seen and examined today as a follow-up. He is sitting up in bed and appears in no acute distress in no pain. States he had breakfast this morning it has been about an hour and a half and he has no abdominal pain. States yesterday after lunch and dinner he did have some mild discomfort and nausea but nothing severe. Objective - Vital Signs Vital signs: Vital Signs Temp 97.9 F 07/25/24 07:11 Pulse 49 L 07/25/24 07:30 Resp 18 07/25/24 07:30 BP 139/66 07/25/24 07:11 Pulse Ox 96 07/25/24 07:11 FiO2 Intake & Output 07/24/24 07/25/24 07/25/24 18:59 06:59 18:59 Intake Total 1560 Output Total 1 Balance 1559 Intake: IV 1560 Sodium Chloride 0.9% 1, 1560 000 ml @ 130 mls/hr IV . Q7H42M [facility] Rx#:[id number] Output: Urine 1 Other: # Voids 1 2 # Bowel Movements 1 - Exam General appearance: The patient is alert, oriented, appears in no acute distress. HET: Head is normocephalic and atraumatic. Pupils are equal and reactive. Neck: Supple. Heart: Regular. Lungs: Equal expansion, normal respiratory effort. Abdomen: Soft, nontender, nondistended. Extremities: Normal skin color and turgor. Palpable DP and PT pulses bi laterally. Neurological: Oriented x 3. - Labs CBC & Chem 7: 07/24/24 08:17 07/25/24 02:50 Labs: Abnormal Lab Results - Last 24 Hours (Table) 07/25/24 Range/Units 02:50 Sodium 135 L (137-145) mmol/L Chloride 109 H (98-107) mmol/L Carbon Dioxide 18 L (22-30) mmol/L Assessment and Plan Assessment: 1. Abdominal pain, resolved 2. Chronic mesenteric ischemia 3. Chronic SMA occlusion with reconstitution 4. Infrarenal AAA Plan: Patient's abdominal pain improved. Seems to be intermittent with eating. Discussed with him to eat more smaller meals. Outpatient follow-up in 1 to 2 weeks and will discuss further for possible attempt of revascularization. Patient is agreeable with the plan. Thank you for this consultation, patient is cleared from vascular surgery for discharge. The impression and plan of care has been dictated as directed. Dr. Urbano Paula I performed a history and examination of this patient, discussed the same with the dictator. I agree with the dictator's note ,documented as a scribe. Any additional findings or plans will be noted.
--- NOTE | 2024-07-25 11:39 | P.PN ---
Subjective Progress Note Date: 07/25/24 SURGICAL PROGRESS NOTE CHIEF COMPLAINT: Abdominal pain HISTORY OF PRESENT ILLNESS: Patient reports abdominal pain has improved. He was able to tolerate regular diet this morning. Denies any nausea or vomiting. He is awaiting further recommendations per vascular surgery regarding his chronic mesenteric ischemia. Afebrile. PHYSICAL EXAM: VITAL SIGNS: Reviewed. GENERAL: Well-developed in no acute distress. ABDOMEN: Soft. Nondistended. Nontender. NEUROLOGIC: Alert and oriented. Cranial nerves II through XII grossly intact. ASSESSMENT: 1. Chronic mesenteric ischemia 2. Abdominal pain PLAN: - No surgical intervention planned from general surgery - Defer to vascular surgery. Their recommendations noted for outpatient follow- up. - Will sign off. Please call with any questions or concerns Physician Stacker Tender note has been reviewed by physician. Signing provider agrees with the documented findings, assessment, and plan of care. Objective - Vital Signs Vital signs: Vital Signs Temp 97.9 F 07/25/24 07:11 Pulse 49 L 07/25/24 07:30 Resp 18 07/25/24 07:30 BP 139/66 07/25/24 07:11 Pulse Ox 96 07/25/24 07:11 FiO2 Intake & Output 07/24/24 07/25/24 07/25/24 18:59 06:59 18:59 Intake Total 1560 Output Total 1 Balance 1559 Intake: IV 1560 Sodium Chloride 0.9% 1, 1560 000 ml @ 130 mls/hr IV . Q7H42M [facility] Rx#:[id number] Output: Urine 1 Other: # Voids 1 2 # Bowel Movements 1 - Labs CBC & Chem 7: 07/24/24 08:17 07/25/24 02:50 Labs: Abnormal Lab Results - Last 24 Hours (Table) 07/25/24 Range/Units 02:50 Sodium 135 L (137-145) mmol/L Chloride 109 H (98-107) mmol/L Carbon Dioxide 18 L (22-30) mmol/L
== END 2024-07-25 13:25 | disposition home or self-care (01) ==
LOC: EC 20:42 → 5NMEDONC 07-23 00:06 → 4SSUR 07-23 01:29
PROVIDERS: ADMIT Hospitalist; ATTEND Hospitalist
DX: K55.1 Chronic vascular disorders of intestine (principal); K55.069 Acute infarction of intestine, part and extent unspecified; I71.43 Infrarenal abdominal aortic aneurysm, without rupture; N17.9 Acute kidney failure, unspecified; D72.829 Elevated white blood cell count, unspecified; I10 Essential (primary) hypertension; E78.5 Hyperlipidemia, unspecified; I73.9 Peripheral vascular disease, unspecified; I25.10 Atherosclerotic heart disease of native coronary artery without angina pectoris; G47.30 Sleep apnea, unspecified; F17.200 Nicotine dependence, unspecified, uncomplicated; Z95.5 Presence of coronary angioplasty implant and graft; Z79.01 Long term (current) use of anticoagulants; Z79.02 Long term (current) use of antithrombotics/antiplatelets; Z79.899 Other long term (current) drug therapy
CPT/HCPCS: 96376; 96361 ×5; 96374; 99285; 36415; 80053; 80048 ×2; 83605; 83690; 85025 ×2; 74018; G0378 ×4; J2270 ×2

== ENCOUNTER → 2024-08-06 | Outpatient (CLI) | payer MEDICARE ==
--- NOTE | 2024-08-06 10:13 | MR ---
MRI liver. HISTORY: Rule out liver mass. TECHNIQUE: Multiecho multiplanar images of the abdomen were obtained with and without contrast. Exam was performed according to department MRI liver protocol. FINDINGS: The gallbladder is normal without gallstones, wall thickening, distention or pericholecystic fluid. T here is no biliary ductal dilatation. There are a few scattered small hepatic cysts but no solid liver mass. The small mass adjacent to the gallbladder displays no pathological enhancement is most consistent with a peripheral calcified cyst . There is no focal mass or enlargement of the pancreas, spleen or adrenal glands. There is no solid renal mass or hydronephrosis. There is a 4.7 cm infrarenal abdominal aortic aneurysm with extensive mural thrombus. There is no ret roperitoneal adenopathy. The bowel loops are normal in caliber and there is no dilatation or obstruction. There is no free int raperitoneal fluid. IMPRESSION: 1. No suspicious liver mass. There are multiple liver cysts. The mass adjacent to the gallbladder see n on prior CT and ultrasound appears to represent a nonenhancing peripherally calcified cyst. 2. 4.7 cm infrarenal abdominal aortic aneurysm with extensive mural thrombus. [facility], , 08/06/2024 10:10 AM
== END | disposition home or self-care (01) ==
LOC: RADMRIMAIN 08:47
PROVIDERS: ATTEND Internal Medicine Geriatric Medicine
DX: I71.43 Infrarenal abdominal aortic aneurysm, without rupture (principal); D37.6 Neoplasm of uncertain behavior of liver, gallbladder and bile ducts; K76.89 Other specified diseases of liver
CPT/HCPCS: 74183; A9585

== ENCOUNTER 2024-08-08 15:57 | Observation (INO) | payer MEDICARE ==
--- NOTE | 2024-08-08 16:20 | ED ---
Abdominal Pain HPI - General Chief Complaint: Abdominal Pain Stated Complaint: Abd pain Time Seen by Provider: 08/08/24 16:06 Source: patient, EMS Mode of arrival: EMS Limitations: no limitations - History of Present Illness Initial Comments: This patient is a 64-year-old man with history of AAA and of SMA occlusion, who presents with complaint of abdominal pain getting worse over the past couple of hours. Patient states that he noticed the pain when he was driving home from work today. He had also eaten something prior. The patient developed diffuse abdominal pain. He also had episode of loose stool when he got home, no bloody or tarry stool. The patient medical record indicates 4.7 cm AAA with mural thrombus. Patient also with short segment SMA occlusion with reconstitution, from recent CT and MRI of the abdomen. Patient denies chest pain. He is having nausea. He has not noted change in urination. No pain into the back or legs. No weakness or numbness of the extremities MD Complaint: abdominal pain Onset/Timin -: hour(s) Location: diffuse Radiation: none Migration to: no migration Severity: severe Quality: cramping, aching Consistency: constant Improves With: nothing Worsens With: nothing Associated Symptoms: nausea, diarrhea - Related Data Home Medications Medication Instructions Recorded Confirmed Atorvastatin [Lipitor] 40 mg PO DAILY 06/12/24 07/23/24 Fenofibrate Nanocrystallized 145 mg PO DAILY 06/12/24 07/23/24 [Fenofibrate] amLODIPine [Norvasc] 10 mg PO DAILY 06/12/24 07/23/24 cilostazoL [Pletal] 100 mg PO BID 06/12/24 07/23/24 hydroCHLOROthiazide [Hydrodiuril] 25 mg PO DAILY 06/12/24 07/23/24 lisinopriL [Zestril] 40 mg PO DAILY 06/12/24 07/23/24 Previous Rx's Medication Instructions Recorded Apixaban [Eliquis] 5 mg PO BID #90 tab 06/14/24 Acetaminophen Tab [Tylenol] 650 mg PO Q6HR PRN tab 07/25/24 Allergies Allergy/AdvReac Type Severity Reaction Status Date / Time No Known Allergies Allergy Verified 08/08/24 16:04 Review of Systems ROS Statement: Those systems with pertinent positive or pertinent negative responses have been documented in the HPI. ROS Other: All systems not noted in ROS Statement are negative. Constitutional: Denies: fever, chills, weakness Respiratory: Denies: cough, dyspnea Cardiovascular: Denies: chest pain, palpitations, edema Gastrointestinal: Reports: abdominal pain, nausea, diarrhea. Denies: vomiting, constipation, hematemesis, melena, hematochezia Genitourinary: Denies: dysuria, hematuria, testicular pain, testicular mass Musculoskeletal: Denies: back pain Skin: Denies: rash Neurological: Denies: headache, weakness, numbness Past Medical History Past Medical History: Coronary Artery Disease (CAD), Hypertension, Sleep Apnea /CPAP/BIPAP Additional Past Medical History / Comment(s): PAD History of Any Multi-Drug Resistant Organisms: None Reported Past Surgical History: Heart Catheterization With Stent Additional Past Surgical History / Comment(s): bypass left leg Past Anesthesia/Blood Transfusion Reactions: No Reported Reaction Past Psychological History: No Psychological Hx Reported Smoking Status: Current some day smoker Past Alcohol Use History: None Reported Past Drug Use History: None Reported General Exam Limitations: no limitations General appearance: alert, in no apparent distress Head exam: Present: atraumatic, normocephalic Eye exam: Present: normal appearance. Absent: scleral icterus, conjunctival injection ENT exam: Present: normal oropharynx Neck exam: Present: normal inspection Respiratory exam: Present: normal lung sounds bilaterally. Absent: respiratory distress, wheezes, rales, rhonchi, stridor, accessory muscle use Cardiovascular Exam: Present: regular rate, normal rhythm, normal heart sounds. Absent: systolic murmur, diastolic murmur, rubs, gallop GI/Abdominal exam: Present: soft, tenderness (Mild diffuse tenderness), diminished bowel sounds. Absent: distended, guarding, rebound, rigid, mass, pulsatile mass, hernia Extremities exam: Present: normal inspection, normal capillary refill. Absent: pedal edema, calf tenderness Back exam: Present: normal inspection. Absent: CVA tenderness (R), CVA tenderness (L) Neurological exam: Present: alert Skin exam: Present: warm, dry, intact, normal color. Absent: rash Course Vital Signs 08/08/24 08/08/24 08/08/24 15:59 17:37 18:28 Temperature 97.6 F Pulse Rate 87 73 78 Respiratory 20 18 18 Rate Blood Pressure 144/82 121/89 145/70 O2 Sat by Pulse 100 96 98 Oximetry 08/08/24 19:07 Temperature Pulse Rate 76 Respiratory 18 Rate Blood Pressure 124/78 O2 Sat by Pulse 96 Oximetry Medical Decision Making - Lab Data Result diagrams: 08/08/24 16:24 08/08/24 16:24 Lab Results 08/08/24 08/08/24 08/08/24 Range/Units 16:24 16:24 16:24 WBC 14.50 H (4.50-10.00) 10*3/uL RBC 4.80 (4.40-5.60) 10*6/uL Hgb 14.7 (13.0-17.0) g/dL Hct 41.4 (39.6-50.0) % MCV 86.3 (80.0-97.0) fL MCH 30.6 (27.0-32.0) pg MCHC 35.5 (32.0-37.0) g/dL Plt Count 365 (140-440) 10*3/uL MPV 10.4 (9.5-12.2) fL Immature Gran % (Auto) 0.6 % Neutrophils % 72.9 % Lymphocytes % 16.1 % Monocytes % 9.5 % Eosinophils % 0.1 % Basophils % 0.8 % Immature Gran # 0.08 H (0.00-0.04) 10*3/uL Neutrophils # 10.57 H (1.80-7.70) 10*3/uL Lymphocytes # 2.33 (0.90-5.00) 10*3/uL Monocytes # 1.38 H (0.20-1.00) 10*3/uL Eosinophils # 0.02 L (0.04-0.35) 10*3/uL Basophils # 0.12 H (0.00-0.10) 10*3/uL PT 13.5 H (10.0-12.5) sec INR 1.3 H (<1.2) APTT 28.1 (22.0-30.0) sec Sodium 134 L (137-145) mmol/L Potassium 3.4 L (3.5-5.1) mmol/L Chloride 103 (98-107) mmol/L Carbon Dioxide 18 L (22-30) mmol/L Anion Gap 13 mmol/L BUN 30 H (9-20) mg/dL Creatinine 2.53 H (0.66-1.25) mg/dL Est GFR (CKD-EPI)AfAm 30 (>60 ml/min/1.73 sqM) Est GFR (CKD-EPI)NonAf 26 (>60 ml/min/1.73 sqM) Glucose 143 H (74-99) mg/dL Plasma Lactic Acid Liam (0.7-2.0) mmol/L Calcium 9.8 (8.4-10.2) mg/dL Total Bilirubin 0.9 (0.2-1.3) mg/dL AST 17 (17-59) U/L ALT 14 (4-49) U/L Alkaline Phosphatase 53 (38-126) U/L Troponin I (0.000-0.034) ng/mL Total Protein 6.7 (6.3-8.2) g/dL Albumin 4.3 (3.5-5.0) g/dL Amylase 39 (30-110) U/L Lipase 51 (23-300) U/L 08/08/24 08/08/24 Range/Units 16:24 16:24 WBC (4.50-10.00) 10*3/uL RBC (4.40-5.60) 10*6/uL Hgb (13.0-17.0) g/dL Hct (39.6-50.0) % MCV (80.0-97.0) fL MCH (27.0-32.0) pg MCHC (32.0-37.0) g/dL Plt Count (140-440) 10*3/uL MPV (9.5-12.2) fL Immature Gran % (Auto) % Neutrophils % % Lymphocytes % % Monocytes % % Eosinophils % % Basophils % % Immature Gran # (0.00-0.04) 10*3/uL Neutrophils # (1.80-7.70) 10*3/uL Lymphocytes # (0.90-5.00) 10*3/uL Monocytes # (0.20-1.00) 10*3/uL Eosinophils # (0.04-0.35) 10*3/uL Basophils # (0.00-0.10) 10*3/uL PT (10.0-12.5) sec INR (<1.2) APTT (22.0-30.0) sec Sodium (137-145) mmol/L Potassium (3.5-5.1) mmol/L Chloride (98-107) mmol/L Carbon Dioxide (22-30) mmol/L Anion Gap mmol/L BUN (9-20) mg/dL Creatinine (0.66-1.25) mg/dL Est GFR (CKD-EPI)AfAm (>60 ml/min/1.73 sqM) Est GFR (CKD-EPI)NonAf (>60 ml/min/1.73 sqM) Glucose (74-99) mg/dL Plasma Lactic Acid Liam 1.7 (0.7-2.0) mmol/L Calcium (8.4-10.2) mg/dL Total Bilirubin (0.2-1.3) mg/dL AST (17-59) U/L ALT (4-49) U/L Alkaline Phosphatase (38-126) U/L Troponin I 0.021 (0.000-0.034) ng/mL Total Protein (6.3-8.2) g/dL Albumin (3.5-5.0) g/dL Amylase (30-110) U/L Lipase (23-300) U/L Disposition Clinical Impression: Abdominal pain, Acute kidney injury Disposition: ADMITTED IP TO THIS HOSP Condition: Fair Is patient prescribed a controlled substance at d/c from ED?: No Referrals: Scott Hernandez MD [Primary Care Provider] - 1-2 days
[2024-08-08] MEDS: ONDANSETRON 4 MG/2 ML VIAL IVP STA (16:30)
[2024-08-08] MEDS: MORPHINE SULFATE 4 MG/ML SYRINGE IV STA ×2 (16:31→19:35)
[2024-08-08] MEDS: SODIUM CHLORIDE 0.9% 500 ML 500 ML IV STA ×2 (16:33→17:54)
[2024-08-08 16:34] LABS: Basophils # (A) 0.12 10*3/uL (0.00-0.10); Basophils % (A) 0.8 %; Eosinophils # (A) 0.02 10*3/uL (0.04-0.35); Eosinophils % (A) 0.1 %; HCT 41.4 % (39.6-50.0); HGB 14.7 g/dL (13.0-17.0); Lymphocytes # (A) 2.33 10*3/uL (0.90-5.00); Lymphocytes % (A) 16.1 %; MCH 30.6 pg (27.0-32.0); MCHC 35.5 g/dL (32.0-37.0); MCV 86.3 fL (80.0-97.0); Mean Platelet Volume 10.4 fL (9.5-12.2); Monocytes # (A) 1.38 10*3/uL (0.20-1.00); Monocytes % (A) 9.5 %; Neutrophils # (A) 10.57 10*3/uL (1.80-7.70); Neutrophils % (A) 72.9 %; Platelet Count 365 10*3/uL (140-440); RDW 13.2 % (11.5-14.5)
[2024-08-08 16:49] LABS: INR 1.3 (<1.2); Prothrombin Time 13.5 sec (10.0-12.5)
[2024-08-08 16:50] LABS: Partial Thromboplastin Time 28.1 sec (22.0-30.0)
[2024-08-08 17:08] LABS: ALT 14 U/L (4-49); AST 17 U/L (17-59); African American GFR (CKD) 30 (>60 ml/min/1.73 sqM); Albumin 4.3 g/dL (3.5-5.0); Alkaline Phosphatase 53 U/L (38-126); Amylase 39 U/L (30-110); Anion Gap 13 mmol/L; Blood Urea Nitrogen 30 mg/dL (9-20); Calcium 9.8 mg/dL (8.4-10.2); Carbon Dioxide 18 mmol/L (22-30); Chloride 103 mmol/L (98-107); Glucose 143 mg/dL (74-99); Lipase 51 U/L (23-300); Non-African American GFR(CKD) 26 (>60 ml/min/1.73 sqM); Potassium 3.4 mmol/L (3.5-5.1); Sodium 134 mmol/L (137-145); Total Bilirubin 0.9 mg/dL (0.2-1.3); Total Protein 6.7 g/dL (6.3-8.2)
--- NOTE | 2024-08-08 18:33 | CT ---
EXAMINATION TYPE: CT angio abdomen pelvis DATE OF EXAM: 08/08/2024 5:56 PM COMPARISON: None. CLINICAL INDICATION: Male, 64 years old with history of abdominal pain/hx SMA occlusion, AAA, abdomin al pain, AAA TECHNIQUE: Axial images were obtained from above the diaphragm to the pubic rami in the axial plane a t 5 mm thick sections. Reconstructed images are reviewed on the computer in the coronal plane. CONTRAST: 80ml mL of Isovue 370. Study performed without Oral Contrast DLP: 1323.8 mGycm, Automated exposure control for dose reduction was used. FINDINGS: Limited CT sections are obtained the lung bases. The lung bases are clear. CT ABDOMEN: Liver: Normal Spleen: Normal Pancreas: Normal Adrenal glands: The adrenal glands are normal. Gallbladder: Normal Kidneys: No masses are evident. No hydronephrosis is present. No cysts are present. No renal stone s evident. Aorta: Vascular calcification is within the aorta. There is aneurysmal dilatation on the noncontrast images measuring 4.3 cm. No dissection is evident following contrast menstruation with attention to the aorta. Celiac axis is patent. The superior mesenteric artery appears to have collateral flow octaviano nstituting its proximal portion but obstructed at the origin. Renal arteries are patent. Bifurcation appears normal. Intraconal and extraconal iliac arteries are patent. There is some aneurysmal dilatat ion of the distal left common femoral artery measuring 2.7 cm near the inguinal region. The right sup erficial femoral artery stent appears to be occluded. No superficial femoral artery artery contrast e vident on the right. Inferior vena cava: Normal. CT PELVIS: Loops of bowel within the abdomen and pelvis are normal. Diverticular changes are within the sigmoid colon. There are loops of bowel which are incompletely distended or lack oral contrast limiting th eir evaluation. Appendix: Normal as visualized. Urinary bladder: Normal. Genitourinary structures: Prostate is normal. Osseous structures: No suspicious lytic or sclerotic lesions. Facet degenerative changes are present in the lower lumbar spine. IMPRESSION: 1. 4.3 cm aneurysm of mid abdominal aorta. 2. 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 This is reconstituted proximally from collateral vessels. Finding was present previously 3. Obstruction of the right superior femoral artery stent. No superficial femoral artery contrast tiffanie ling is evident. 4. 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
[2024-08-08] MEDS ORDERED: HYDROmorphone 0.5 MG/0.5 ML SYRINGE IVP PRN (20:35)
[2024-08-08] MEDS ORDERED: NALOXONE 0.4 MG/ML 1 ML VIAL IV PRN (20:35)
[2024-08-08] MEDS ORDERED: MAG HYDROX/AL HYDROX/SIMETH 30 ML CUP PO PRN (20:35)
[2024-08-08] MEDS ORDERED: ONDANSETRON 4 MG/2 ML VIAL IVP PRN (20:35)
[2024-08-08] MEDS: SODIUM CHLORIDE 0.9% 1,000 ML IV SCH (21:43)
[2024-08-09 08:53] VITALS: RESP 18; TEMP 97.8
[2024-08-09] MEDS: PANTOPRAZOLE 40 MG/10 ML VIAL IV SCH (08:55)
[2024-08-09] MEDS: POTASSIUM CHLORIDE 10 MEQ in WATER FOR INJECTION 1 100ML.BAG IVPB SCH (08:57)
--- NOTE | 2024-08-09 08:59 | P.GSCN ---
History of Present Illness Consult date: 08/09/24 Reason for Consult: AAA, SMA occlusion Requesting physician: Bennett Celestin History of present illness: 64-year-old male with history of SMA occlusive disease, mesenteric ischemia, AAA and chronic abdominal pain presented to the emergency department yesterday with complaint of abdominal pain that started about 2 hours after he ate his lunch. States it was pretty severe so he came in for further evaluation. He has had multiple episodes with admission to the hospital as well as ER visits due to this discomfort. He was recently seen on his last admission 07/23/2024 by vascular surgery and has a follow-up appointment today with Dr. Sparks to discuss intervention. He had a repeat CTA with no change showing 4.3 cm abdominal aortic aneurysm, occlusion of the SMA at its origin with reconstitution and right SFA artery stent occlusion as well as aneurysm at the distal left common femoral artery. He states his abdominal pain is improved. He denies any shortness of breath or chest pain. Denies any pain down his lower extremities. He was also noted to have acute kidney injury on admission. Repeat labs ordered but pending. Review of Systems A 14 point review systems was completed all pertinent positives and negatives as stated in the HPI. Past Medical History Past Medical History: Coronary Artery Disease (CAD), Hypertension, Sleep Application Developer ea/CPAP/BIPAP Additional Past Medical History / Comment(s): PAD History of Any Multi-Drug Resistant Organisms: None Reported Past Surgical History: Heart Catheterization With Stent Additional Past Surgical History / Comment(s): bypass left leg Past Anesthesia/Blood Transfusion Reactions: No Reported Reaction Past Psychological History: No Psychological Hx Reported Smoking Status: Current some day smoker Past Alcohol Use History: None Reported Past Drug Use History: None Reported Medications and Allergies Home Medications Medication Instructions Recorded Confirmed Type Atorvastatin [Lipitor] 40 mg PO DAILY 06/12/24 07/23/24 History Fenofibrate Nanocrystallized 145 mg PO DAILY 06/12/24 07/23/24 History [Fenofibrate] amLODIPine [Norvasc] 10 mg PO DAILY 06/12/24 07/23/24 History cilostazoL [Pletal] 100 mg PO BID 06/12/24 07/23/24 History hydroCHLOROthiazide [Hydrodiuril] 25 mg PO DAILY 06/12/24 07/23/24 History lisinopriL [Zestril] 40 mg PO DAILY 06/12/24 07/23/24 History Apixaban [Eliquis] 5 mg PO BID #90 tab 06/14/24 07/23/24 Rx Acetaminophen Tab [Tylenol] 650 mg PO Q6HR PRN tab 07/25/24 Rx Allergies Allergy/AdvReac Type Severity Reaction Status Date / Time No Known Allergies Allergy Verified 08/08/24 16:04 Surgical - Exam Vital Signs Temp Pulse Resp BP Pulse Ox 97.6 F 87 20 144/82 100 08/08/24 15:59 08/08/24 15:59 08/08/24 15:59 08/08/24 15:59 08/08/24 15:59 General appearance: The patient is alert, oriented, appears in no acute distress. HET: Head is normocephalic and atraumatic. Pupils are equal and reactive. Neck: Supple. Heart: Regular. Lungs: Equal expansion, normal respiratory effort. Abdomen: Soft, nontender, nondistended. Extremities: Normal skin color and turgor. Neurological: No focal deficits. Strength and sensation are grossly intact. Results - Labs 08/08/24 16:24 08/08/24 16:24 Abnormal Lab Results - Last 24 Hours (Table) 08/08/24 08/08/24 08/08/24 Range/Units 16:24 16:24 16:24 WBC 14.50 H (4.50-10.00) 10*3/uL Immature Gran # 0.08 H (0.00-0.04) 10*3/uL Neutrophils # 10.57 H (1.80-7.70) 10*3/uL Monocytes # 1.38 H (0.20-1.00) 10*3/uL Eosinophils # 0.02 L (0.04-0.35) 10*3/uL Basophils # 0.12 H (0.00-0.10) 10*3/uL PT 13.5 H (10.0-12.5) sec INR 1.3 H (<1.2) Sodium 134 L (137-145) mmol/L Potassium 3.4 L (3.5-5.1) mmol/L Carbon Dioxide 18 L (22-30) mmol/L BUN 30 H (9-20) mg/dL Creatinine 2.53 H (0.66-1.25) mg/dL Glucose 143 H (74-99) mg/dL Diabetes panel 08/08/24 Range/Units 16:24 Sodium 134 L (137-145) mmol/L Potassium 3.4 L (3.5-5.1) mmol/L Chloride 103 (98-107) mmol/L Carbon Dioxide 18 L (22-30) mmol/L BUN 30 H (9-20) mg/dL Creatinine 2.53 H (0.66-1.25) mg/dL Glucose 143 H (74-99) mg/dL Calcium 9.8 (8.4-10.2) mg/dL AST 17 (17-59) U/L ALT 14 (4-49) U/L Alkaline Phosphatase 53 (38-126) U/L Total Protein 6.7 (6.3-8.2) g/dL Albumin 4.3 (3.5-5.0) g/dL Calcium panel 08/08/24 Range/Units 16:24 Calcium 9.8 (8.4-10.2) mg/dL Albumin 4.3 (3.5-5.0) g/dL Pituitary panel 08/08/24 Range/Units 16:24 Sodium 134 L (137-145) mmol/L Potassium 3.4 L (3.5-5.1) mmol/L Chloride 103 (98-107) mmol/L Carbon Dioxide 18 L (22-30) mmol/L BUN 30 H (9-20) mg/dL Creatinine 2.53 H (0.66-1.25) mg/dL Glucose 143 H (74-99) mg/dL Calcium 9.8 (8.4-10.2) mg/dL Adrenal panel 08/08/24 Range/Units 16:24 Sodium 134 L (137-145) mmol/L Potassium 3.4 L (3.5-5.1) mmol/L Chloride 103 (98-107) mmol/L Carbon Dioxide 18 L (22-30) mmol/L BUN 30 H (9-20) mg/dL Creatinine 2.53 H (0.66-1.25) mg/dL Glucose 143 H (74-99) mg/dL Calcium 9.8 (8.4-10.2) mg/dL Total Bilirubin 0.9 (0.2-1.3) mg/dL AST 17 (17-59) U/L ALT 14 (4-49) U/L Alkaline Phosphatase 53 (38-126) U/L Total Protein 6.7 (6.3-8.2) g/dL Albumin 4.3 (3.5-5.0) g/dL Assessment and Plan Assessment: 1. Abdominal pain 2. Chronic mesenteric ischemia 3. Chronic SMA occlusion with reconstitution 4. Infrarenal abdominal aortic aneurysm Plan: Patient has office appointment with Dr. Sparks from vascular surgery today [facility] was scheduled to discuss intervention/treatment plan. Continue Eliquis as ordered. Discussed with patient again to have small servings at a time. Recommend smoking cessation. No plans for any vascular surgical intervention at this time. Patient is cleared for discharge from vascular surgery. Recommend follow-up as scheduled today at [address] Sparks. Thank you for this consultation, patient is cleared from vascular surgery. The impression and plan of care has been dictated as directed. Dr. Urbano Paula I performed a history and examination of this patient, discussed the same with the dictator. I agree with the dictator's note ,documented as a scribe. Any additional findings or plans will be noted.
[2024-08-09 09:06] LABS: Appearance,Urine Clear (Clear); Bilirubin,Urine Negative (Negative); Blood,Urine Negative (Negative); Color,Urine Light Yellow; Glucose,Urine (UA) Negative (Negative); Ketones,Urine Negative (Negative); Leukocyte Esterase,Urine Negative (Negative); Nitrite,Urine Negative (Negative); Protein,Urine Negative (Negative); Specific Gravity,Urine 1.039 (1.001-1.035); Urobilinogen,Urine <2.0 mg/dL (<2.0)
[2024-08-09 09:37] LABS: Basophils % (A) 0.6 %; Eosinophils # (A) 0.06 10*3/uL (0.04-0.35); Eosinophils % (A) 0.4 %; HCT 41.6 % (39.6-50.0); HGB 14.4 g/dL (13.0-17.0); Lymphocytes # (A) 2.22 10*3/uL (0.90-5.00); Lymphocytes % (A) 14.4 %; MCH 30.5 pg (27.0-32.0); MCHC 34.6 g/dL (32.0-37.0); MCV 88.1 fL (80.0-97.0); Mean Platelet Volume 10.3 fL (9.5-12.2); Monocytes # (A) 1.24 10*3/uL (0.20-1.00); Neutrophils # (A) 11.78 10*3/uL (1.80-7.70); Neutrophils % (A) 76.2 %; Platelet Count 345 10*3/uL (140-440); RBC 4.72 10*6/uL (4.40-5.60); RDW 13.3 % (11.5-14.5); WBC 15.46 10*3/uL (4.50-10.00)
[2024-08-09 09:51] LABS: African American GFR (CKD) 80 (>60 ml/min/1.73 sqM); Anion Gap 8 mmol/L; Blood Urea Nitrogen 26 mg/dL (9-20); Calcium 9.5 mg/dL (8.4-10.2); Carbon Dioxide 22 mmol/L (22-30); Chloride 104 mmol/L (98-107); Glucose 98 mg/dL (74-99); Magnesium 1.6 mg/dL (1.6-2.3); Non-African American GFR(CKD) 70 (>60 ml/min/1.73 sqM); Potassium 4.1 mmol/L (3.5-5.1); Sodium 134 mmol/L (137-145)
--- NOTE | 2024-08-09 11:07 | P.GSCN ---
History of Present Illness Consult date: 08/09/24 History of present illness: CHIEF COMPLAINT: Abdominal pain HISTORY OF PRESENT ILLNESS: This is a 64-year-old male with a history of AAA and SMA occlusion. Patient has had recurrent hospitalizations for abdominal pain likely due to his SMA occlusion and chronic mesenteric ischemia. Patient came into the ER due to increase in abdominal pain. Abdominal pain has again resolved. CTA abdomen and pelvis had reported obstruction of the superior mesenteric artery. Obstruction of the right superior femoral artery stent. 4.3 cm aneurysm of the mid abdominal aorta. Aneurysm of the distal left common femoral artery. Patient does have a 1:00 appointment with vascular surgery this afternoon. PAST MEDICAL HISTORY: Coronary Artery Disease (CAD), Hypertension, Sleep Apnea/CPAP/BIPAP PAST SURGICAL HISTORY: Heart catheterization with stent, bypass left leg MEDICATIONS: See below ALLERGIES: See below SOCIAL HISTORY: No illicit drug use. Nicotine dependence REVIEW OF SYSTEMS: CONSTITUTIONAL: Denies fever or chills. HEENT: Denies blurred vision, vision changes, or eye pain. Denies hemoptysis CARDIOVASCULAR: Denies chest pain or pressure. RESPIRATORY: No shortness of breath. GASTROINTESTINAL: See HPI for pertinent findings HEMATOLOGIC: Denies bleeding disorders. GENITOURINARY: Denies any blood in urine or increased urinary frequency. SKIN: Denies pruitis. Denies rash. PHYSICAL EXAM: VITAL SIGNS: Reviewed GENERAL: Well-developed in no acute distress. HEENT: No sclera icterus. Extraocular movements grossly intact. Moist buccal mucosa. Head is atraumatic, normocephalic. No nasal drainage. ABDOMEN: Soft. Nondistended. Nontender. No rebound or guarding noted. NEUROLOGIC: Alert and oriented. Cranial nerves II through XII grossly intact. LABORATORY DATA: WBC 14.5 up to 15.46 Hgb 14.4 platelets 345 Sodium 134 potassium 4.1 creatinine 2.53 down to 1.11 IMAGING: CTA abdomen and pelvis 4.3 cm aneurysm of mid abdominal aorta. 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 Obstruction of the right superior femoral artery stent. Aneurysm at the distal left common femoral artery. ASSESSMENT: 1. Abdominal pain 2. Chronic mesenteric ischemia 3. Chronic SMA occlusion PLAN: - No surgical intervention planned from general surgery - Recommend follow-up with vascular surgery - Patient can be discharged from surgery standpoint Physician Muck Hauler note has been reviewed by physician. Signing provider agrees with the documented findings, assessment, and plan of care. Past Medical History Past Medical History: Coronary Artery Disease (CAD), Hypertension, Sleep Apnea/ CPAP/BIPAP Additional Past Medical History / Comment(s): PAD History of Any Multi-Drug Resistant Organisms: None Reported Past Surgical History: Heart Catheterization With Stent Additional Past Surgical History / Comment(s): bypass left leg Past Anesthesia/Blood Transfusion Reactions: No Reported Reaction Past Psychological History: No Psychological Hx Reported Smoking Status: Current some day smoker Past Alcohol Use History: None Reported Past Drug Use History: None Reported Medications and Allergies Home Medications Medication Instructions Recorded Confirmed Type Atorvastatin [Lipitor] 40 mg PO DAILY 06/12/24 08/09/24 History Fenofibrate Nanocrystallized 145 mg PO DAILY 06/12/24 08/09/24 History [Fenofibrate] amLODIPine [Norvasc] 10 mg PO DAILY 06/12/24 08/09/24 History cilostazoL [Pletal] 100 mg PO BID 06/12/24 08/09/24 History Apixaban [Eliquis] 5 mg PO BID #90 tab 06/14/24 08/09/24 Rx Acetaminophen Tab [Tylenol] 650 mg PO Q6HR PRN tab 07/25/24 08/09/24 Rx Allergies Allergy/AdvReac Type Severity Reaction Status Date / Time No Known Allergies Allergy Verified 08/09/24 10:15 Surgical - Exam Vital Signs Temp Pulse Resp BP Pulse Ox 97.6 F 87 20 144/82 100 08/08/24 15:59 08/08/24 15:59 08/08/24 15:59 08/08/24 15:59 08/08/24 15:59 Results - Labs 08/09/24 09:12 08/09/24 09:12 Abnormal Lab Results - Last 24 Hours (Table) 08/08/24 08/08/24 08/08/24 Range/Units 08:59 16:24 16:24 WBC 14.50 H (4.50-10.00) 10*3/uL Immature Gran # 0.08 H (0.00-0.04) 10*3/uL Neutrophils # 10.57 H (1.80-7.70) 10*3/uL Monocytes # 1.38 H (0.20-1.00) 10*3/uL Eosinophils # 0.02 L (0.04-0.35) 10*3/uL Basophils # 0.12 H (0.00-0.10) 10*3/uL PT 13.5 H (10.0-12.5) sec INR 1.3 H (<1.2) Sodium (137-145) mmol/L Potassium (3.5-5.1) mmol/L Carbon Dioxide (22-30) mmol/L BUN (9-20) mg/dL Creatinine (0.66-1.25) mg/dL Glucose (74-99) mg/dL Ur Specific [place] 1.039 H (1.001-1.035) 08/08/24 08/09/24 08/09/24 Range/Units 16:24 09:12 09:12 WBC 15.46 H (4.50-10.00) 10*3/uL Immature Gran # 0.06 H (0.00-0.04) 10*3/uL Neutrophils # 11.78 H (1.80-7.70) 10*3/uL Monocytes # 1.24 H (0.20-1.00) 10*3/uL Eosinophils # (0.04-0.35) 10*3/uL Basophils # (0.00-0.10) 10*3/uL PT (10.0-12.5) sec INR (<1.2) Sodium 134 L 134 L (137-145) mmol/L Potassium 3.4 L (3.5-5.1) mmol/L Carbon Dioxide 18 L (22-30) mmol/L BUN 30 H 26 H (9-20) mg/dL Creatinine 2.53 H (0.66-1.25) mg/dL Glucose 143 H (74-99) mg/dL Ur Specific [place] (1.001-1.035) Diabetes panel 08/08/24 08/09/24 Range/Units 16:24 09:12 Sodium 134 L 134 L (137-145) mmol/L Potassium 3.4 L 4.1 (3.5-5.1) mmol/L Chloride 103 104 (98-107) mmol/L Carbon Dioxide 18 L 22 (22-30) mmol/L BUN 30 H 26 H (9-20) mg/dL Creatinine 2.53 H 1.11 (0.66-1.25) mg/dL Glucose 143 H 98 (74-99) mg/dL Calcium 9.8 9.5 (8.4-10.2) mg/dL AST 17 (17-59) U/L ALT 14 (4-49) U/L Alkaline Phosphatase 53 (38-126) U/L Total Protein 6.7 (6.3-8.2) g/dL Albumin 4.3 (3.5-5.0) g/dL Calcium panel 08/08/24 08/09/24 Range/Units 16:24 09:12 Calcium 9.8 9.5 (8.4-10.2) mg/dL Albumin 4.3 (3.5-5.0) g/dL Pituitary panel 08/08/24 08/09/24 Range/Units 16:24 09:12 Sodium 134 L 134 L (137-145) mmol/L Potassium 3.4 L 4.1 (3.5-5.1) mmol/L Chloride 103 104 (98-107) mmol/L Carbon Dioxide 18 L 22 (22-30) mmol/L BUN 30 H 26 H (9-20) mg/dL Creatinine 2.53 H 1.11 (0.66-1.25) mg/dL Glucose 143 H 98 (74-99) mg/dL Calcium 9.8 9.5 (8.4-10.2) mg/dL Adrenal panel 08/08/24 08/09/24 Range/Units 16:24 09:12 Sodium 134 L 134 L (137-145) mmol/L Potassium 3.4 L 4.1 (3.5-5.1) mmol/L Chloride 103 104 (98-107) mmol/L Carbon Dioxide 18 L 22 (22-30) mmol/L BUN 30 H 26 H (9-20) mg/dL Creatinine 2.53 H 1.11 (0.66-1.25) mg/dL Glucose 143 H 98 (74-99) mg/dL Calcium 9.8 9.5 (8.4-10.2) mg/dL Total Bilirubin 0.9 (0.2-1.3) mg/dL AST 17 (17-59) U/L ALT 14 (4-49) U/L Alkaline Phosphatase 53 (38-126) U/L Total Protein 6.7 (6.3-8.2) g/dL Albumin 4.3 (3.5-5.0) g/dL
[2024-08-09 11:18] VITALS: BP 129/69; PULSE 63
--- NOTE | 2024-08-09 11:36 | P.HPIM ---
History of Present Illness H&P Date: 08/09/24 Patient is a 64-year-old male with CAD, hypertension, sleep apnea, PAD (with bypass of SMA the left leg), AAA nicotine dependence here for evaluation of abdominal pain. Patient reported that on 08/05 in the afternoon as he was sitting at home coming from work, he reported to experience abdominal pain that was diffuse radiating to the back and worsening over time. He mentioned he has chronic abdominal pain that occurs a few hours after eating. He also reported an episode of loose stooling that was nonbloody and not foul-smelling. He denied chest pain, palpitations, focal weakness, extremity swelling, changes in sensation, shortness of breath, changes in vision, changes in speech, recent tra ronald or fall. 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 On admission: Vitals: Temp 97.6 F, MO 87, RR 20, BP 144/82, O2 saturation 100% on room air Labs: WBC 14.5, hemoglobin 14.7, PT 13.5, INR 1.3, PTT 2.8.1, sodium 134, potassium 3.4, bicarb 18, BUN 30, creatinine 2.25, glucose 143, troponin 0.02, amylase 39, lipase 51. Liver enzymes within normal limits. Lactic acid 1.7. Imaging: CT angio abdomen and pelvis 4.3 aneurysm of the mid abdominal aorta, noted known SMA obstruction with reconstitution, obstruction of right superior femoral artery stent, aneurysm at distal left common femoral artery. ED documentation reviewed. Review of systems: Pertinent positives and negatives as discussed in HPI, a complete review of systems was performed and all other systems are negative. Social history: Tobacco: Active for 50 years. Decreased to 3-4 sticks a few days within the week. Alcohol: 3-4 beers 12 oz cans for 47 years. Quit for 3 months now. Recreational drugs: remote history Travel: no recent prolonged travel Physical examination: Vital signs reviewed General: non toxic, no distress, appears at stated age, room air Derm: no unusual rashes/lesions, warm Head: atraumatic, normocephalic, symmetric Eyes: EOMI, anicteric sclera, pupils equal round reactive to light ENT: Nose and ears atraumatic Neck: No cervical lymphadenopathy, trachea midline, supple Mouth: no lip lesion, mucus membranes moist Cardiovascular: S1S2 reg, no murmur Lungs: CTA bilateral, no rhonchi, no rales, no accessory muscle use Abdominal: soft, nondistended, nontender to palpation, no guarding Ext: muscle strength 5 out of 5 in all 4 extremities grossly, no gross muscle atrophy, no contractures, positive dorsalis pedis pulse bilateral, no edema Neuro: CN II-XI grossly intact, no gross focal neuro deficits Psych: Alert and oriented x 3, appropriate affect and mood Assessment/Plan: The patient is admitted with an anticipated less than 2 midnight stay for evaluation of abdominal pain and ESDRAS Active: #Abdominal pain secondary to PAD #Known AAA CT angio abdomen and pelvis 4.3 aneurysm of the mid abdominal aorta, noted known SMA obstruction with reconstitution, obstruction of right superior femoral artery stent, aneurysm at distal left common femoral artery. N.p.o. for now Given 1 L bolus of 0.9 normal saline in the ED. Continue with IV fluids 0.9 normal saline at 100 cc/h Continue with IV Zofran as needed for nausea and vomiting IV Dilaudid for pain control as needed Surgery and vascular surgery consulted by the ED #Acute Kidney Injury, likely due to diuretics BUN 30, creatinine 2.25 CT abdomen pelvis shows no hydronephrosis, cysts or masses Monitor UO and renal function Avoid nephrotoxic agents. Held HCTZ and lisinopril IVF as above # Hypokalemia Potassium 3.4 Administered 20 mEq potassium chloride IV Check mag and potassium Chronic Conditions: #CAD #Hypertension #Sleep apnea #PAD (with bypass of SMA the left leg) Continue Eliquis, cilostazol, Lipitor and amlodipine Hold lisinopril and hydrochlorothiazide DVT ppx: SCDs GI ppx: Protonix 40 mg IV daily CODE STATUS: Full Discussed with: Patient Anticipated discharge place: Home Dana Coto MD PGY-1 Internal Medicine Dictation was produced using [employer] dictation software. please excuse any grammatical, word or spelling errors. Attestation: I have seen and examined this patient with my resident, assessment and plan discussed with the resident, agree with assessment and plan as written above. Dr. Li Past Medical History Past Medical History: Coronary Artery Disease (CAD), Hypertension, Sleep Apnea/CPAP/BIPAP Additional Past Medical History / Comment(s): PAD History of Any Multi-Drug Resistant Organisms: None Reported Past Surgical History: Heart Catheterization With Stent Additional Past Surgical History / Comment(s): bypass left leg Past Anesthesia/Blood Transfusion Reactions: No Reported Reaction Past Psychological History: No Psychological Hx Reported Smoking Status: Current some day smoker Past Alcohol Use History: None Reported Past Drug Use History: None Reported Medications and Allergies Home Medications Medication Instructions Recorded Confirmed Type RX: Atorvastatin [Lipitor] 40 mg PO DAILY 06/12/24 08/09/24 History RX: Fenofibrate Nanocrystallized 145 mg PO DAILY 06/12/24 08/09/24 History [Fenofibrate] RX: amLODIPine [Norvasc] 10 mg PO DAILY 06/12/24 08/09/24 History RX: cilostazoL [Pletal] 100 mg PO BID 06/12/24 08/09/24 History RX: Apixaban [Eliquis] 5 mg PO BID #90 tab 06/14/24 08/09/24 Rx RX: Acetaminophen Tab [Tylenol] 650 mg PO Q6HR PRN tab 07/25/24 08/09/24 Rx Allergies Allergy/AdvReac Type Severity Reaction Status Date / Time No Known Allergies Allergy Verified 08/09/24 10:15 Physical Exam Vitals: Vital Signs Temp Pulse Resp BP Pulse Ox 08/09/24 06:16 70 16 134/70 94 L 08/09/24 02:16 77 16 142/77 95 08/08/24 22:21 73 16 131/63 96 08/08/24 19:07 76 18 124/78 96 08/08/24 18:28 78 18 145/70 98 08/08/24 17:37 73 18 121/89 96 08/08/24 15:59 97.6 F 87 20 144/82 100 Intake and Output 08/08/24 08/09/24 08/09/24 22:59 06:59 14:59 Other: Weight 90.265 kg Results CBC & Chem 7: 08/09/24 09:12 08/09/24 09:12 Labs: Abnormal Lab Results - Last 24 Hours (Table) 08/08/24 08/08/24 08/08/24 Range/Units 16:24 16:24 16:24 WBC 14.50 H (4.50-10.00) 10*3/uL Immature Gran # 0.08 H (0.00-0.04) 10*3/uL Neutrophils # 10.57 H (1.80-7.70) 10*3/uL Monocytes # 1.38 H (0.20-1.00) 10*3/uL Eosinophils # 0.02 L (0.04-0.35) 10*3/uL Basophils # 0.12 H (0.00-0.10) 10*3/uL PT 13.5 H (10.0-12.5) sec INR 1.3 H (<1.2) Sodium 134 L (137-145) mmol/L Potassium 3.4 L (3.5-5.1) mmol/L Carbon Dioxide 18 L (22-30) mmol/L BUN 30 H (9-20) mg/dL Creatinine 2.53 H (0.66-1.25) mg/dL Glucose 143 H (74-99) mg/dL
--- NOTE | 2024-08-09 12:07 | P.NPCON ---
History of Present Illness - Reason for Consult acute renal failure - History of Present Illness Patient is a 64-year-old male with history of hypertension, peripheral vascular disease and abdominal aortic aneurysm. He has a history of chronic mesenteric ischemia. He is admitted to the hospital with complaints of abdominal pain after lunch. No previous history of kidney diseases Serum creatinine was 2.5 on admission and decreased to 1.1 today. Previous creatinine 0.7 on 07/25/2024. No significant hypotension noted Maintained on IV fluids. Patient was maintained on MONICA inhibitors at home. Patient has been evaluated by vascular surgery and he is cleared for discharge from their standpoint. He will follow-up as outpatient today with Dr. Sparks for further plans/intervention Past Medical History Past Medical History: Coronary Artery Disease (CAD), Hypertension, Sleep Apnea/CPAP/BIPAP Additional Past Medical History / Comment(s): PAD History of Any Multi-Drug Resistant Organisms: None Reported Past Surgical History: Heart Catheterization With Stent Additional Past Surgical History / Comment(s): bypass left leg Past Anesthesia/Blood Transfusion Reactions: No Reported Reaction Past Psychological History: No Psychological Hx Reported Smoking Status: Current some day smoker Past Alcohol Use History: None Reported Past Drug Use History: None Reported Medications and Allergies Home Medications Medication Instructions Recorded Confirmed Type Atorvastatin [Lipitor] 40 mg PO DAILY 06/12/24 08/09/24 History Fenofibrate Nanocrystallized 145 mg PO DAILY 06/12/24 08/09/24 History [Fenofibrate] amLODIPine [Norvasc] 10 mg PO DAILY 06/12/24 08/09/24 History cilostazoL [Pletal] 100 mg PO BID 06/12/24 08/09/24 History Apixaban [Eliquis] 5 mg PO BID #90 tab 06/14/24 08/09/24 Rx Acetaminophen Tab [Tylenol] 650 mg PO Q6HR PRN tab 07/25/24 08/09/24 Rx Allergies Allergy/AdvReac Type Severity Reaction Status Date / Time No Known Allergies Allergy Verified 08/09/24 10:15 Physical Exam Vitals: Vital Signs Temp Pulse Resp BP Pulse Ox 08/09/24 11:16 97.8 F 63 18 129/69 96 08/09/24 08:52 97.8 F 62 18 133/64 95 08/09/24 06:16 70 16 134/70 94 L 08/09/24 02:16 77 16 142/77 95 08/08/24 22:21 73 16 131/63 96 08/08/24 19:07 76 18 124/78 96 08/08/24 18:28 78 18 145/70 98 08/08/24 17:37 73 18 121/89 96 08/08/24 15:59 97.6 F 87 20 144/82 100 Intake and Output 08/08/24 08/09/24 08/09/24 22:59 06:59 14:59 Other: Weight 90.265 kg Patient is awake, comfortable, alert oriented x 3 Examination of the heart S1 and S2 Examination of the lungs bilateral breath sounds are heard Abdomen is soft nontender Examination of lower extremities shows no significant edema [employer] exam grossly intact Results - Lab Results Most recent lab results Calcium 9.5 mg/dL (8.4-10.2) 08/09/24 09:12 Magnesium 1.6 mg/dL (1.6-2.3) 08/09/24 09:12 08/09/24 09:12 08/09/24 09:12 Assessment and Plan Assessment: 1. Acute kidney injury, mostly prerenal and improved significantly with IV fluids. UA is completely benign 2. Chronic mesenteric ischemia being followed by vascular surgery 3. Infrarenal abdominal aortic aneurysm 4. Hypokalemia secondary to diuresis 5. Peripheral vascular disease with history of left lower extremity bypass surgery Plan: Continue IV fluids until discharge May continue off of MONICA inhibitors and diuretics for now. Can resume lisinopril at home if blood pressure is elevated. Maintain follow-up with vascular surgery Maintain adequate oral intake Thank you for the consultation. We will continue to follow the patient with you during his hospitalization
--- NOTE | 2024-08-09 15:00 | P.DS ---
Providers Date of admission: 08/08/24 20:38 Attending physician: Augustina Bartlett Consults: 08/08/24 20:35 Consult Physician Routine Consulting Provider: Fernando Pugh Consult Reason/Comments: Abdominal pain Do you want consulting provider notified?: Already Contacted Consult Physician Routine Consulting Provider: Wilmar Barker Consult Reason/Comments: AAA, SMA occlusion. Do you want consulting provider notified?: Already Contacted 08/08/24 20:38 Consult Physician Routine Consulting Provider: Rosemary Castillo Consult Reason/Comments: Acute kidney injury Do you want consulting provider notified?: Yes Primary care physician: Scott Mendiola [facility] Hospital Course: Hospital Course: Patient is a 64-year-old male with CAD, hypertension, sleep apnea, PAD (with bypass of SMA the left leg), AAA nicotine dependence here for evaluation of abdominal pain. Patient reported that on 08/05 in the afternoon as he was sitting at home coming from work, he reported to experience abdominal pain that was diffuse radiating to the back and worsening over time. He mentioned he has chronic abdominal pain that occurs a few hours after eating. He also reported an episode of loose stooling that was nonbloody and not foul-smelling. He denied chest pain, palpitations, focal weakness, extremity swelling, changes in sensation, shortness of breath, changes in vision, changes in speech, recent trauma or fall. 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 On admission: Vitals: Temp 97.6 F, DE 87, RR 20, BP 144/82, O2 saturation 100% on room air Labs: WBC 14.5, hemoglobin 14.7, PT 13.5, INR 1.3, PTT 2.8.1, sodium 134, potassium 3.4, bicarb 18, BUN 30, creatinine 2.25, glucose 143, troponin 0.02, amylase 39, lipase 51. Liver enzymes within normal limits. Lactic acid 1.7. Imaging: CT angio abdomen and pelvis 4.3 aneurysm of the mid abdominal aorta, noted known SMA obstruction with reconstitution, obstruction of right superior femoral artery stent, aneurysm at distal left common femoral artery. Patient was admitted for the evaluation of chronic mesenteric ischemia and ESDRAS. Ordered pain medications, n.p.o., IV fluids, IV Zofran. Surgery, nephrology and vascular surgery were consulted by the ED. Patient also developed hypokalemia on admission and was repleted. Patient symptoms improved throughout hospital stay. Patient's renal function improved throughout hospital stay. Home hydrochlorothiazide and lisinopril were held. Patient is cleared for discharge by vascular surgery, surgery and nephrology. He is advised to follow-up with vascular surgery and PCP on outpatient basis. Final Diagnosis: #Abdominal pain secondary to Chronic Mesenteric Ischemia #Known infrarenal AAA, stable #Known PAD s/p bypass graft #Acute Kidney Injury, likely due to diuretics #Hypokalemia #CAD #Hypertension #Sleep apnea #Nicotine dependence Physical examination: Vital signs reviewed General: non toxic, no distress Derm: no unusual rashes/lesions, warm Head: atraumatic, normocephalic, symmetric Eyes: EOMI, anicteric sclera, pupils equal round reactive to light ENT: Nose and ears atraumatic Neck: No cervical lymphadenopathy, trachea midline, supple Mouth: no lip lesion, mucus membranes moist Cardiovascular: S1S2 reg, no murmurs Lungs: CTA bilateral, no rhonchi, no rales, no accessory muscle use Abdominal: soft, nondistended, nontender to palpation, no guarding Ext: muscle strength 5 out of 5 in all 4 extremities grossly, no gross muscle atrophy, no contractures, positive dorsalis pedis pulse bilateral, no edema Neuro: CN II-XI grossly intact, no gross focal neuro deficits Psych: Alert, oriented, appropriate affect and mood Attestation: I have seen and examined this patient with my resident, assessment and plan discussed with the resident, agree with assessment and plan as written above. Dr. Li Patient Condition at Discharge: Stable Plan - Discharge Summary New Discharge Prescriptions: Continue RX: cilostazoL [Pletal] 100 mg PO BID RX: Atorvastatin [Lipitor] 40 mg PO DAILY RX: Fenofibrate Nanocrystallized [Fenofibrate] 145 mg PO DAILY RX: Apixaban [Eliquis] 5 mg PO BID #90 tab RX: Acetaminophen Tab [Tylenol] 650 mg PO Q6HR PRN tab PRN Reason: Mild Pain Or Fever > 100.5 RX: amLODIPine [Norvasc] 10 mg PO DAILY Discontinued RX: hydroCHLOROthiazide [Hydrodiuril] 25 mg PO DAILY RX: lisinopriL [Zestril] 40 mg PO DAILY Discharge Medication List RX: Atorvastatin [Lipitor] 40 mg PO DAILY 06/12/24 [History] RX: Fenofibrate Nanocrystallized [Fenofibrate] 145 mg PO DAILY 06/12/24 [History] RX: amLODIPine [Norvasc] 10 mg PO DAILY 06/12/24 [History] RX: cilostazoL [Pletal] 100 mg PO BID 06/12/24 [History] RX: Apixaban [Eliquis] 5 mg PO BID #90 tab 06/14/24 [Rx] RX: Acetaminophen Tab [Tylenol] 650 mg PO Q6HR PRN tab 07/25/24 [Rx] Follow up Appointment(s)/Referral(s): Bennett Sparks DO [STAFF PHYSICIAN] - 1 Week Scott Hernandez MD [Primary Care Provider] - 1-2 days Patient Instructions/Handouts: Acute Kidney Injury (DC), Peripheral Artery Disease (DC) Activity/Diet/Wound Care/Special Instructions: Please see PCP and vascular surgery on discharge Discharge Disposition: HOME SELF-CARE
[2024-08-09] MEDS ORDERED: APIXABAN 5 MG TAB PO SCH (21:00)
[2024-08-09] MEDS ORDERED: cilostazoL 100 MG TAB PO SCH (21:00)
[2024-08-10] MEDS ORDERED: amLODIPine 10 MG TAB PO SCH (09:00)
[2024-08-10] MEDS ORDERED: FENOFIBRATE 160 MG TAB PO SCH (09:00)
[2024-08-10] MEDS ORDERED: ATORVASTATIN 40 MG TAB PO SCH (09:00)
[2024-08-10] MEDS ORDERED: lisinopriL 20 MG TAB PO SCH (09:00)
[2024-08-10] MEDS ORDERED: hydroCHLOROthiazide 25 MG TAB PO SCH (09:00)
== END 2024-08-09 12:11 | disposition home or self-care (01) ==
LOC: EC 15:57 → 3SCARD 20:38
PROVIDERS: ADMIT Hospitalist; ATTEND Hospitalist
DX: K55.1 Chronic vascular disorders of intestine (principal); N17.9 Acute kidney failure, unspecified; I71.43 Infrarenal abdominal aortic aneurysm, without rupture; K55.069 Acute infarction of intestine, part and extent unspecified; E87.6 Hypokalemia; T50.2X5A Adverse effect of carbonic-anhydrase inhibitors, benzothiadiazides and other diuretics, initial encounter; G47.30 Sleep apnea, unspecified; I10 Essential (primary) hypertension; I25.10 Atherosclerotic heart disease of native coronary artery without angina pectoris; I73.9 Peripheral vascular disease, unspecified; F17.200 Nicotine dependence, unspecified, uncomplicated; Z95.5 Presence of coronary angioplasty implant and graft; Z79.01 Long term (current) use of anticoagulants; Z79.02 Long term (current) use of antithrombotics/antiplatelets; Z79.899 Other long term (current) drug therapy
CPT/HCPCS: 96376; 96365; 96375 ×2; 99285; 36415; 80053; 80048; 82150; 83605; 83690; 83735; 84484; 85025 ×2; 85610; 85730; 81003; 74174; G0378 ×2; J2270; J2405; J3480; Q9967; J2470